=== PATIENT | female | born 1965 | race Caucasian/White ===

== ENCOUNTER 2017-12-31 11:53 | Day surgery (SDC) | payer OTHER, BC ==
[2017-12-31] MEDS ORDERED: NS 1,000 ML IV (12:38)
[2017-12-31] MEDS ORDERED: LR 1,000 ML IV (13:00)
[2017-12-31 13:17] LABS: BASO # 0.1 10^3/uL (0.0-0.2); BASO % 0.9 % (0.0-1.0); EOS # 0.1 10^3/uL (0.0-0.50); EOS % 1.2 % (0.0-3.0); HEMATOCRIT 37.2 % (36.0-47.0); HEMOGLOBIN 12.7 g/dl (12.0-16.0); IMMATURE GRANULOCYTE % 0.3 % (0-3.0); LYMPH # 1.5 10^3/uL (1.5-4.5); LYMPH % 18.9 % (24.0-44.0); MEAN CORPUSCULAR HEMOGLOBIN 28.9 pg (27.0-33.0); MEAN CORPUSCULAR HGB CONC 34.1 g/dl (32.0-36.5); MEAN CORPUSCULAR VOLUME 84.7 fl (80.0-96.0); MONO # 0.4 10^3/uL (0.0-0.8); MONO % 5.6 % (0.0-5.0); NEUTROPHILS # 5.7 10^3/uL (1.8-7.7); NEUTROPHILS % 73.1 % (36.0-66.0); PLATELET COUNT, AUTOMATED 349 10^3/uL (150-450); RED BLOOD COUNT 4.39 10^6/uL (4.00-5.40); RED CELL DISTRIBUTION WIDTH 13.2 % (11.5-14.5); WHITE BLOOD COUNT 7.7 10^3/uL (4.0-10.0)
[2017-12-31 13:44] LABS: ALBUMIN 4.2 GM/DL (3.2-5.2); ALBUMIN/GLOBULIN RATIO 1.24 (1.00-1.93); ALKALINE PHOSPHATASE 87 U/L (45-117); ALT/SGPT 30 U/L (12-78); ANION GAP 10 MEQ/L (8-16); AST/SGOT 19 U/L (7-37); BILIRUBIN,DIRECT 0.1 MG/DL (0.0-0.2); BILIRUBIN,TOTAL 0.5 MG/DL (0.2-1.0); BLOOD UREA NITROGEN 11 MG/DL (7-18); CALCIUM LEVEL 9.6 MG/DL (8.5-10.1); CARBON DIOXIDE LEVEL 26 MEQ/L (21-32); CHLORIDE LEVEL 105 MEQ/L (98-107); CREATININE FOR GFR 0.75 MG/DL (0.55-1.30); GLOMERULAR FILTRATION RATE > 60.0 (>51); GLUCOSE, FASTING 80 MG/DL (70-100); LIPASE 236 U/L (73-393); SODIUM LEVEL 141 MEQ/L (136-145); TOTAL PROTEIN 7.6 GM/DL (6.4-8.2)
[2017-12-31] MEDS ORDERED: fentaNYL 100 MCG/2 ML INJECTION (J3010) As Ordered ×2 (14:06→15:19)
[2017-12-31] MEDS ORDERED: MIDAZOLAM INJ 2 MG/2 ML VIAL (J2250) As Ordered (14:06)
[2017-12-31] MEDS ORDERED: LIDOCAINE 2% INJ 100 MG/5 ML SDV (FOR ANES.) As Ordered (14:09)
[2017-12-31] MEDS ORDERED: PROPOFOL 200 MG/20 ML VIAL As Ordered (14:09)
[2017-12-31] MEDS ORDERED: dexameTHASONE 4 MG/ML 1ML VIAL (J1100) As Ordered (14:10)
[2017-12-31] MEDS ORDERED: ROCURONIUM BROMIDE 50 MG/5 ML VIAL As Ordered (14:10)
[2017-12-31] MEDS ORDERED: ONDANSETRON 4MG/2ML VIAL (J2405) As Ordered (14:10)
[2017-12-31] MEDS ORDERED: GLYCOPYRROLATE INJ 0.2 MG/ML 2 ML VIAL As Ordered (15:16)
[2017-12-31] MEDS ORDERED: NEOSTIGMINE 10 MG/10 ML VIAL (J2710) As Ordered (15:16)
[2017-12-31] MEDS: LIDOCAINE W/EPINEPHRINE 1% 20ML VIAL As Ordered (15:18)
[2017-12-31] MEDS: LR 1,000 ML IV (15:32)
[2017-12-31] MEDS ORDERED: MEPERIDINE INJ 25 MG/ML VIAL (J2175) As Ordered (15:34)
[2017-12-31] MEDS: MEPERIDINE INJ 25 MG/ML VIAL (J2175) IV ×2 (15:40→15:49)
[2017-12-31] MEDS: fentaNYL 100 MCG/2 ML INJECTION (J3010) IV ×4 (15:55→16:13)
[2017-12-31] MEDS: NORCO, ANEXSIA 5/325MG TABLET (HYDROcodone/ACETAMINOPHEN) PO ×2 (16:11→16:45)
[2017-12-31] MEDS: ONDANSETRON 4MG/2ML VIAL (J2405) IV (16:20)
[2017-12-31] MEDS: HYDROmorphone HCL 1 MG/ML SYRINGE (J1170) IV ×5 (16:20→16:46)
== END 2017-12-31 18:42 | disposition home or self-care (01) ==
LOC: M SDC 18:42 → M ED 11:53 → M SDC 14:05
DX: K80.18 Calculus of gallbladder with other cholecystitis without obstruction (principal); C54.1 Malignant neoplasm of endometrium; Z88.8 Allergy status to other drugs, medicaments and biological substances
CPT/HCPCS: 47562

== ENCOUNTER → 2018-01-13 | Outpatient (CLI) | payer OTHER ==
[~2018-01-13] MED LIST: GASTROGRAFIN SOLUTION 30ML (Q9963) As Ordered; ISOVUE-370 76% 100ML VIAL (Q9967) As Ordered
== END ==
LOC: M RAD 10:57
DX: R10.11 Right upper quadrant pain (principal)

== ENCOUNTER → 2018-01-24 | Outpatient (REF) | payer OTHER ==
[2018-01-24 13:02] LABS: INR 0.91; PARTIAL THROMBOPLASTIN TIME 25.9 SECONDS (26.8-37.9); PROTHROMBIN TIME 12.3 SECONDS (12.4-14.5)
[2018-01-25 09:42] LABS: CA 125 3.8 U/ML (<30.2)
== END ==
LOC: M LAB REF 12:05
DX: C54.1 Malignant neoplasm of endometrium (principal)

== ENCOUNTER 2018-01-27 13:58 | Outpatient (RCR) | payer OTHER | END 2018-02-07 | LOC: M ONCR 13:58 | DX: C54.1 Malignant neoplasm of endometrium (principal) | CPT/HCPCS: 77334 ==

== ENCOUNTER 2018-02-06 08:54 | Emergency (ER) | payer OTHER ==
[2018-02-06] MEDS: PANTOPRAZOLE 40MG INJ (PROTONIX) (C9113) IV (09:31)
[2018-02-06 09:47] LABS: HEMATOCRIT 32.6 % (36.0-47.0); MEAN CORPUSCULAR HEMOGLOBIN 29.2 pg (27.0-33.0); MEAN CORPUSCULAR HGB CONC 33.7 g/dl (32.0-36.5); MEAN CORPUSCULAR VOLUME 86.5 fl (80.0-96.0); PLATELET COUNT, AUTOMATED 233 10^3/uL (150-450); RED BLOOD COUNT 3.77 10^6/uL (4.00-5.40); RED CELL DISTRIBUTION WIDTH 13.7 % (11.5-14.5); WHITE BLOOD COUNT 18.2 10^3/uL (4.0-10.0)
[2018-02-06 10:02] LABS: ADD MANUAL DIFFER YES; DIFF SLIDE NUMBER 104; POS COUNT POS FLAG; POSITIVE MORPH POS FLAG
[2018-02-06 10:15] LABS: ALBUMIN 3.6 GM/DL (3.2-5.2); ALKALINE PHOSPHATASE 132 U/L (45-117); ALT/SGPT 27 U/L (12-78); ANION GAP 6 MEQ/L (8-16); AST/SGOT 13 U/L (7-37); BILIRUBIN,DIRECT < 0.1 MG/DL (0.0-0.2); BILIRUBIN,TOTAL 0.2 MG/DL (0.2-1.0); BLOOD UREA NITROGEN 8 MG/DL (7-18); CALCIUM LEVEL 8.8 MG/DL (8.5-10.1); CARBON DIOXIDE LEVEL 29 MEQ/L (21-32); CHLORIDE LEVEL 107 MEQ/L (98-107); CK-MB VALUE MASS < 1.0 NG/ML (<3.6); CPK CREATINE PHOSPHOKINASE 33 U/L (26-192); CREATININE FOR GFR 0.81 MG/DL (0.55-1.30); GLOMERULAR FILTRATION RATE > 60.0 (>51); GLUCOSE, FASTING 103 MG/DL (70-100); LIPASE 324 U/L (73-393); MB/CK RELATIVE INDEX 3.03 (< OR =4); POTASSIUM SERUM 3.3 MEQ/L (3.5-5.1); SODIUM LEVEL 142 MEQ/L (136-145); TOTAL PROTEIN 6.6 GM/DL (6.4-8.2); TROPONIN I < 0.02 NG/ML (< 0.10)
[2018-02-06 10:17] LABS: LACTIC ACID SEPSIS PROTOCOL 2.2 MMOL/L (0.4-2.0)
[2018-02-06 10:38] LABS: BANDS 5 % (< 11); EOSINOPHILS 1 % (0-5); LYMPHOCYTES 8 % (16-52); METAMYELOCYTES 3 % (0-0); MONOCYTES 3 % (0-8); MYELOCYTES 2 % (0-0); NEUTROPHILS 78 % (35-75)
[2018-02-06 10:39] LABS: PLATELET ESTIMATE NORMAL (NORMAL); POLYCHROMASIA 1+
[2018-02-06] MEDS: ONDANSETRON 4MG/2ML VIAL (J2405) IV (11:32)
[2018-02-06] MEDS: MORPHINE 4 MG/ML 1ML VIAL/SYRINGE (J2270) IV (11:33)
[2018-02-06] MEDS: GASTROGRAFIN SOLUTION 30ML PO ×2 (11:55→12:30)
[2018-02-06 12:59] LABS: CK-MB VALUE MASS < 1.0 NG/ML (<3.6); CPK CREATINE PHOSPHOKINASE 30 U/L (26-192); MB/CK RELATIVE INDEX 3.33 (< OR =4); TROPONIN I < 0.02 NG/ML (< 0.10)
[2018-02-06] MEDS ORDERED: ISOVUE-370 76% 100ML VIAL (Q9967) As Ordered (13:15)
[2018-02-06 15:20] LABS: HEMATOCRIT 32.3 % (36.0-47.0); HEMOGLOBIN 10.9 g/dl (12.0-15.5); MEAN CORPUSCULAR HEMOGLOBIN 29.4 pg (27.0-33.0); MEAN CORPUSCULAR HGB CONC 33.7 g/dl (32.0-36.5); MEAN CORPUSCULAR VOLUME 87.1 fl (80.0-96.0); PLATELET COUNT, AUTOMATED 238 10^3/uL (150-450); RED BLOOD COUNT 3.71 10^6/uL (4.00-5.40); RED CELL DISTRIBUTION WIDTH 13.8 % (11.5-14.5); WHITE BLOOD COUNT 19.6 10^3/uL (4.0-10.0)
[2018-02-06 15:27] LABS: ADD MANUAL DIFFER YES; DIFF SLIDE NUMBER 127; POS COUNT POS FLAG; POSITIVE MORPH POS FLAG
[2018-02-06 15:46] LABS: BANDS 8 % (< 11); LYMPHOCYTES 6 % (16-52); METAMYELOCYTES 3 % (0-0); MONOCYTES 3 % (0-8); MYELOCYTES 2 % (0-0); NEUTROPHILS 77 % (35-75); PROMYELOCYTES 1 % (0-0)
[2018-02-06 15:48] LABS: PLATELET ESTIMATE NORMAL (NORMAL)
[2018-02-06] MEDS: PANTOPRAZOLE 40MG TAB (PROTONIX) PO (16:19)
[2018-02-06] MEDS: SUCRALFATE SUSP 1GM/10ML UD PO (16:20)
== END 2018-02-06 16:25 | disposition home or self-care (01) ==
LOC: M ED 08:54
DX: K29.70 Gastritis, unspecified, without bleeding (principal); D72.829 Elevated white blood cell count, unspecified; T38.0X5A Adverse effect of glucocorticoids and synthetic analogues, initial encounter; C54.1 Malignant neoplasm of endometrium; Z88.5 Allergy status to narcotic agent; Z88.8 Allergy status to other drugs, medicaments and biological substances; Z79.899 Other long term (current) drug therapy; Z79.52 Long term (current) use of systemic steroids
CPT/HCPCS: C9113

== ENCOUNTER 2018-03-08 10:59 | Emergency (ER) | payer OTHER ==
[2018-03-08] MEDS: ONDANSETRON 4MG/2ML VIAL (J2405) IV (12:40)
[2018-03-08] MEDS: NS 1,000 ML IV (12:40)
[2018-03-08] MEDS: MORPHINE 4 MG/ML 1ML VIAL/SYRINGE (J2270) IV (12:40)
[2018-03-08 12:42] LABS: BASO # 0.1 10^3/uL (0.0-0.2); BASO % 0.7 % (0.0-1.0); HEMATOCRIT 33.4 % (36.0-47.0); HEMOGLOBIN 11.4 g/dl (12.0-15.5); IMMATURE GRANULOCYTE % 0.4 % (0-3.0); LYMPH # 1.5 10^3/uL (1.5-4.5); LYMPH % 21.7 % (24.0-44.0); MEAN CORPUSCULAR HEMOGLOBIN 30.4 pg (27.0-33.0); MEAN CORPUSCULAR HGB CONC 34.1 g/dl (32.0-36.5); MEAN CORPUSCULAR VOLUME 89.1 fl (80.0-96.0); MONO # 0.6 10^3/uL (0.0-0.8); NEUTROPHILS # 4.8 10^3/uL (1.8-7.7); NEUTROPHILS % 69.2 % (36.0-66.0); PLATELET COUNT, AUTOMATED 254 10^3/uL (150-450); RED BLOOD COUNT 3.75 10^6/uL (4.00-5.40); RED CELL DISTRIBUTION WIDTH 14.7 % (11.5-14.5); WHITE BLOOD COUNT 6.9 10^3/uL (4.0-10.0)
[2018-03-08 12:45] LABS: KETONE, URINE AUTO RFX NEGATIVE (NEGATIVE); MUCUS, URINE RFX SMALL (NEGATIVE); NITRITE, URINE AUTO RFX NEGATIVE (NEGATIVE); RBC, URINE AUTO RFX 2 /HPF (0-3); SPECIFIC GRAVITY UR AUTO RFX 1.009 (1.002-1.035); SQUAM EPITHELIAL CELL UR AURFX 0 /HPF (0-6); WBC, URINE AUTO RFX 5 /HPF (0-3)
[2018-03-08 12:57] LABS: LEUKOCYTE ESTERASE UR AUTO RFX TRACE (NEGATIVE)
[2018-03-08 13:04] LABS: LACTIC ACID SEPSIS PROTOCOL 0.7 MMOL/L (0.4-2.0)
[2018-03-08 13:05] LABS: ALBUMIN/GLOBULIN RATIO 1.21 (1.00-1.93); ALKALINE PHOSPHATASE 99 U/L (45-117); ALT/SGPT 52 U/L (12-78); ANION GAP 6 MEQ/L (8-16); AST/SGOT 26 U/L (7-37); BILIRUBIN,DIRECT < 0.1 MG/DL (0.0-0.2); BILIRUBIN,TOTAL 0.5 MG/DL (0.2-1.0); BLOOD UREA NITROGEN 8 MG/DL (7-18); CALCIUM LEVEL 9.3 MG/DL (8.5-10.1); CARBON DIOXIDE LEVEL 28 MEQ/L (21-32); CHLORIDE LEVEL 106 MEQ/L (98-107); CREATININE FOR GFR 0.76 MG/DL (0.55-1.30); GLOMERULAR FILTRATION RATE > 60.0 (>51); GLUCOSE, FASTING 83 MG/DL (70-100); LIPASE 218 U/L (73-393); POTASSIUM SERUM 3.7 MEQ/L (3.5-5.1); SODIUM LEVEL 140 MEQ/L (136-145); TOTAL PROTEIN 7.3 GM/DL (6.4-8.2)
[2018-03-08] MEDS ORDERED: ISOVUE-370 76% 100ML VIAL (Q9967) As Ordered (13:24)
== END 2018-03-08 15:31 | disposition home or self-care (01) ==
LOC: M ED 10:59
DX: R10.84 Generalized abdominal pain (principal); C55 Malignant neoplasm of uterus, part unspecified; R06.02 Shortness of breath; R51 Headache; Z88.5 Allergy status to narcotic agent; Z88.6 Allergy status to analgesic agent; Z79.899 Other long term (current) drug therapy; Z79.52 Long term (current) use of systemic steroids
CPT/HCPCS: J2270

== ENCOUNTER 2018-03-15 09:57 | Outpatient (RCR) | payer OTHER | END 2018-04-09 | LOC: M ONCR 09:57 | DX: C54.1 Malignant neoplasm of endometrium (principal) | CPT/HCPCS: 77300 ==

== ENCOUNTER 2018-03-17 17:21 | Emergency (ER) | payer OTHER ==
[2018-03-17 19:18] LABS: BASO % 0.7 % (0.0-1.0); EOS # 0.1 10^3/uL (0.0-0.50); EOS % 3.4 % (0.0-3.0); HEMATOCRIT 30.1 % (36.0-47.0); HEMOGLOBIN 10.3 g/dl (12.0-15.5); IMMATURE GRANULOCYTE % 0.5 % (0-3.0); LYMPH # 1.8 10^3/uL (1.5-4.5); LYMPH % 43.3 % (24.0-44.0); MEAN CORPUSCULAR HEMOGLOBIN 30.7 pg (27.0-33.0); MEAN CORPUSCULAR HGB CONC 34.2 g/dl (32.0-36.5); MEAN CORPUSCULAR VOLUME 89.6 fl (80.0-96.0); MONO # 0.2 10^3/uL (0.0-0.8); MONO % 5.1 % (0.0-5.0); NEUTROPHILS # 1.9 10^3/uL (1.8-7.7); PLATELET COUNT, AUTOMATED 268 10^3/uL (150-450); RED BLOOD COUNT 3.36 10^6/uL (4.00-5.40); RED CELL DISTRIBUTION WIDTH 14.1 % (11.5-14.5); WHITE BLOOD COUNT 4.1 10^3/uL (4.0-10.0)
[2018-03-17 19:46] LABS: CPK CREATINE PHOSPHOKINASE 38 U/L (26-192); TROPONIN I < 0.02 NG/ML (< 0.10)
[2018-03-17 19:47] LABS: ALBUMIN 4.1 GM/DL (3.2-5.2); ALBUMIN/GLOBULIN RATIO 1.71 (1.00-1.93); ALKALINE PHOSPHATASE 70 U/L (45-117); ALT/SGPT 33 U/L (12-78); AMYLASE 66 U/L (25-115); ANION GAP 6 MEQ/L (8-16); AST/SGOT 11 U/L (7-37); BILIRUBIN,DIRECT 0.1 MG/DL (0.0-0.2); BILIRUBIN,TOTAL 0.4 MG/DL (0.2-1.0); BLOOD UREA NITROGEN 11 MG/DL (7-18); CALCIUM LEVEL 8.9 MG/DL (8.5-10.1); CARBON DIOXIDE LEVEL 29 MEQ/L (21-32); CHLORIDE LEVEL 103 MEQ/L (98-107); CK-MB VALUE MASS < 1.0 NG/ML (<3.6); CREATININE FOR GFR 0.78 MG/DL (0.55-1.30); GLOMERULAR FILTRATION RATE > 60.0 (>51); GLUCOSE, FASTING 88 MG/DL (70-100); LIPASE 200 U/L (73-393); MB/CK RELATIVE INDEX 2.63 (< OR =4); POTASSIUM SERUM 4.1 MEQ/L (3.5-5.1); SODIUM LEVEL 138 MEQ/L (136-145); TOTAL PROTEIN 6.5 GM/DL (6.4-8.2)
[2018-03-17 19:50] LABS: LACTIC ACID SEPSIS PROTOCOL 0.8 MMOL/L (0.4-2.0)
[2018-03-17] MEDS: NS 1,000 ML IV (20:06)
[2018-03-17] MEDS: ONDANSETRON 4MG/2ML VIAL (J2405) IV (20:07)
[2018-03-17] MEDS: MORPHINE 4 MG/ML 1ML VIAL/SYRINGE (J2270) IV ×2 (20:07→21:30)
[2018-03-17 20:42] LABS: KETONE, URINE AUTO RFX NEGATIVE (NEGATIVE); NITRITE, URINE AUTO RFX NEGATIVE (NEGATIVE); RBC, URINE AUTO RFX 1 /HPF (0-3); SPECIFIC GRAVITY UR AUTO RFX 1.011 (1.002-1.035); SQUAM EPITHELIAL CELL UR AURFX 0 /HPF (0-6)
[2018-03-17 21:06] LABS: LEUKOCYTE ESTERASE UR AUTO RFX 1+ (NEGATIVE); WBC, URINE AUTO RFX 12 /HPF (0-3)
[2018-03-17] MEDS: GI COCKTAIL 50ML BTL(HYOSCYAMINE/MAALOX/LIDOCAINE VISCOUS)(1:3:1) PO (21:53)
== END 2018-03-17 22:33 | disposition home or self-care (01) ==
LOC: M ED 22:33
DX: R10.84 Generalized abdominal pain (principal); C54.1 Malignant neoplasm of endometrium; Z79.899 Other long term (current) drug therapy; Z88.5 Allergy status to narcotic agent; Z88.6 Allergy status to analgesic agent
CPT/HCPCS: J2270

== ENCOUNTER → 2018-03-17 | Outpatient (CLI) | payer OTHER ==
[~2018-03-17] MED LIST changes: -GASTROGRAFIN SOLUTION 30ML (Q9963) As Ordered; -ISOVUE-370 76% 100ML VIAL (Q9967) As Ordered; +PROHANCE 279.3MG/ML 15ML VIAL (A9576) As Ordered
== END ==
LOC: M RAD 15:30
DX: Z85.42 Personal history of malignant neoplasm of other parts of uterus (principal); M54.5 Low back pain

== ENCOUNTER 2018-03-31 11:45 | Day surgery (SDC) | payer OTHER ==
[2018-03-31] MEDS: NS 1,000 ML IV (12:47)
[2018-03-31] MEDS ORDERED: LIDOCAINE 2% INJ 100 MG/5 ML SDV (FOR ANES.) As Ordered (13:31)
[2018-03-31] MEDS ORDERED: PROPOFOL 200 MG/20 ML VIAL As Ordered (13:31)
[2018-03-31] MEDS ORDERED: fentaNYL 100 MCG/2 ML INJECTION (J3010) As Ordered (13:32)
== END 2018-03-31 14:26 | disposition home or self-care (01) ==
LOC: M OPP 11:45
DX: R10.13 Epigastric pain (principal); R10.11 Right upper quadrant pain; D50.9 Iron deficiency anemia, unspecified; K29.70 Gastritis, unspecified, without bleeding; K21.9 Gastro-esophageal reflux disease without esophagitis; R51 Headache; R06.02 Shortness of breath; Z92.21 Personal history of antineoplastic chemotherapy; C54.1 Malignant neoplasm of endometrium; Z88.5 Allergy status to narcotic agent; Z88.8 Allergy status to other drugs, medicaments and biological substances; Z79.899 Other long term (current) drug therapy; Z80.3 Family history of malignant neoplasm of breast; Z80.0 Family history of malignant neoplasm of digestive organs; Z80.8 Family history of malignant neoplasm of other organs or systems
CPT/HCPCS: 43239

== ENCOUNTER → 2018-04-05 | Outpatient (REF) | payer OTHER ==
[2018-04-05 14:52] LABS: CA 125 2.9 U/ML (<30.2)
== END ==
LOC: M LAB REF 13:16
DX: C54.1 Malignant neoplasm of endometrium (principal)

== ENCOUNTER 2018-04-11 10:48 | Outpatient (RCR) | payer OTHER | END 2018-05-10 | LOC: M ONCR 10:48 | DX: C54.1 Malignant neoplasm of endometrium (principal) | CPT/HCPCS: 77336 ==

== ENCOUNTER → 2018-04-25 | Outpatient (REF) | payer OTHER ==
[2018-04-26 15:02] LABS: CA 125 3.5 U/ML (<30.2)
== END ==
LOC: M LAB REF 13:56
DX: C54.1 Malignant neoplasm of endometrium (principal)

== ENCOUNTER → 2018-10-05 | Outpatient (CLI) | payer OTHER ==
[~2018-10-05] MED LIST changes: +ALEV220T26 PO; +CYMB1CAP5 PO; +DULC5TAB PO; +DULO1CAP3 PO; +GASTROGRAFIN SOLUTION 30ML (Q9963) As Ordered ONE; +HYDR-3713 PO; +ISOVUE-370 76% 100ML VIAL (Q9967) As Ordered ONE; +MOBI4TAB PO; +ONDA8TAB7 PO; +PENI500T PO; +PRED10TA2; +PRED20TA PO; +PROC10TA4 PO; -PROHANCE 279.3MG/ML 15ML VIAL (A9576) As Ordered; +PROT1TAB2 PO; +SILV40CR EXT; +SUCR1SS PO; +TUMS500C PO; +TYLE325T5 PO
--- NOTE | 2018-10-05 10:57 | REP ---
Clinical: Endometrial carcinoma for restaging. Comparison: 03/08/2018. Findings: Fatty infiltration to the liver noted with small scattered subcentimeter hypodensities which remain stable and likely represent cysts. Spleen, pancreas, bilateral adrenal glands and kidneys are normal. Evidence for prior cholecystectomy. The enteric system is without obstruction or acute inflammatory process. Pelvis demonstrates normal bladder and evidence for prior hysterectomy. No ascites. No adenopathy. No focal mass lesion. Abdominal aorta and vasculature appears normal. Musculoskeletal structures are intact without focal osseous abnormality. Impression: 1. No acute abdominopelvic pathology appreciated. 2. No ascites, inflammatory stranding, adenopathy, or focal mass/recurrence appreciated. Electronically Signed by Kwadwo Méndez MD 10/05/2018 10:48 A
--- NOTE | 2018-10-05 11:01 | REP ---
Clinical: History of endometrial carcinoma. Technique: Axial contrast enhanced images from the thoracic inlet to the upper abdomen with coronal and sagittal re-formations using 100 ml Isovue 370 intravenous contrast material. Comparison: 02/06/2018 Findings: Lung mckeon demonstrate mild chronic interstitial changes. There is a 9 mm ovoid solid lesion at the right lung base almost completely obscured by the diaphragm (image 69) which on retrospect remains stable compared to 02/06/2018. No further consolidation, nodule, or mass lesion appreciated. No pleural effusion. No pneumothorax. Tracheobronchial tree is patent. No significant axillary, hilar, or mediastinal adenopathy. Mediastinum demonstrates normal thoracic aorta, pulmonary vasculature and heart/pericardium. No pericardial effusion. Musculoskeletal structures are intact. Impression: Solitary 9 mm nodule at the right lung base which appears stable compared to 02/06/2018. No further nodule, mass, effusion, or adenopathy. Electronically Signed by Kwadwo Méndez MD 10/05/2018 10:52 A
== END ==
LOC: M RAD 08:42
PROVIDERS: ATTEND Internal Medicine Medical Oncology
DX: C54.1 Malignant neoplasm of endometrium (principal); R91.1 Solitary pulmonary nodule
CPT/HCPCS: 71260; 74177; Q9963; Q9967

== ENCOUNTER → 2018-12-23 | Outpatient (CLI) | payer OTHER ==
[~2018-12-23] MED LIST changes: -ISOVUE-370 76% 100ML VIAL (Q9967) As Ordered ONE; +ISOVUE-370 76% 125ML VIAL (Q9967 PER ML) As Ordered ONE
--- NOTE | 2018-12-24 07:16 | REP ---
CT CHEST WITH IV CONTRAST: TECHNIQUE: Axial contrast enhanced images from the thoracic inlet to the upper abdomen using 100 mL Isovue 370 intravenous contrast material with multiplanar reformations. Lungs show no evidence of a suspicious nodule. There is no infiltrate. The previously described nodule in the right lung base actually represents focal pleural fat. There is no mediastinal, hilar or chest wall lymphadenopathy. There is no pleural or pericardial effusion. There is no cardiomegaly. Thoracic aorta is normal in caliber with no aneurysm or dissection. IMPRESSION: No nodule or adenopathy. Electronically Signed by Brice Hunter MD 12/28/2018 09:23 A
--- NOTE | 2018-12-24 07:17 | REP ---
CT ABDOMEN AND PELVIS WITH ORAL AND IV CONTRAST: TECHNIQUE: Axial contrast enhanced images from the lung bases to the pubic symphysis using 100 mL Isovue 370 intravenous contrast material with multiplanar reformations. The liver demonstrates a few small cysts, unchanged predominantly superiorly located. The patient has had a prior cholecystectomy. Mildly prominent common bile duct is unchanged. Spleen, adrenals, pancreas and kidneys demonstrate no mass. There is no abdominal aortic aneurysm. There is no adenopathy. There is no free air or free fluid. There is no bowel wall thickening. There is no evidence of a pelvic mass. The patient has had a hysterectomy. Urinary bladder is mildly distended and appears unremarkable. IMPRESSION: No adenopathy or mass. A few scattered small cysts in the liver. No change since prior study of 10/05/2018. Electronically Signed by Brice Hunter MD 12/28/2018 09:23 A
== END ==
LOC: M RAD 14:40
PROVIDERS: ATTEND Obstetrics & Gynecology
DX: C54.1 Malignant neoplasm of endometrium (principal); K76.89 Other specified diseases of liver
CPT/HCPCS: 71260; 74177; Q9963; Q9967

== ENCOUNTER → 2019-12-27 | Outpatient (CLI) | payer OTHER ==
[~2019-12-27] MED LIST changes: +ACET-683 PO; +ATIV2TAB PO; -DULO1CAP3 PO; +DULO1CAP6 PO; +DULO30CA9 PO; +ISOVUE-370 76% 100ML VIAL (Q9967) As Ordered ONE; -ISOVUE-370 76% 125ML VIAL (Q9967 PER ML) As Ordered ONE; +OMEP-221 PO; +ONDA8TAB10 PO; -ONDA8TAB7 PO; +[UNRECOGNIZED DRUG - CODE] PO
--- NOTE | 2019-12-27 19:26 | REP ---
Clinical: Abdominal pain with history of endometrial carcinoma. Technique: Axial contrast enhanced images from the thoracic inlet to the upper abdomen with coronal and sagittal re-formations using 100 ml Isovue 370 intravenous contrast material. Comparison: 12/23/2018, 02/06/2018. Findings: Chronic interstitial and emphysematous changes are suggested. No focal consolidation, significant nodule or mass lesion identified. No effusion. No pneumothorax. Tracheobronchial tree is patent. No obvious adenopathy. The mediastinum demonstrates normal thoracic aorta, pulmonary vasculature and heart/pericardium. Musculoskeletal structures intact without acute abnormality. Impression: Chronic-appearing changes. No acute mediastinal or pleuroparenchymal process. No evidence for metastatic disease. Electronically Signed by Kwadwo Méndez MD 12/27/2019 07:18 P
--- NOTE | 2019-12-27 19:30 | REP ---
Clinical: Abdominal pain with history of endometrial carcinoma. Technique: Axial contrast enhanced images from the lung bases to the pubic symphysis with coronal and sagittal re-formations using oral (per protocol) and 100 ml Isovue 370 intravenous contrast material. Delayed images of the abdomen obtained. Comparison: 12/23/2018, 10/05/2018. Findings: Small scattered hepatic hypodensities remain stable compared to 10/05/2018 and consistent with benign cysts. Evidence of prior cholecystectomy. Spleen, pancreas, bilateral adrenal glands and kidneys are normal. The enteric system is without obstruction or acute inflammatory process. Normal appendix identified in the right lower quadrant. Pelvis demonstrates normal bladder and evidence of prior hysterectomy. No ascites. No adenopathy. No abdominal pelvic mass lesion. Musculoskeletal structures are intact without focal abnormality. Abdominal aorta without aneurysm or dissection. Impression: 1. No acute abdominopelvic pathology appreciated. 2. No evidence for metastatic disease or recurrence. No adenopathy, focal inflammatory stranding, or ascites. 3. Stable scattered subcentimeter hepatic cysts. Electronically Signed by Kwadwo Méndez MD 12/27/2019 07:22 P
== END ==
LOC: M RAD 10:45
PROVIDERS: ATTEND Internal Medicine Medical Oncology
DX: C54.1 Malignant neoplasm of endometrium (principal)
CPT/HCPCS: 71260; 74177; Q9963; Q9967

== ENCOUNTER 2020-06-21 10:49 | Emergency (ER) | payer MEDICARE, OTHER ==
[~2020-06-21] VITALS: Ht 165.1 cm; Wt 68.0 kg
[~2020-06-21 10:49] MED LIST changes: -GASTROGRAFIN SOLUTION 30ML (Q9963) As Ordered ONE; -ISOVUE-370 76% 100ML VIAL (Q9967) As Ordered ONE
[2020-06-21] MEDS ORDERED: GI COCKTAIL 50ML BTL(HYOSCYAMINE/MAALOX/LIDOCAINE VISCOUS)(1:3:1) PO ONE (11:15)
[2020-06-21 11:22] LABS: BASO # 0.1 10^3/uL (0.0-0.2); BASO % 1.2 % (0.0-1.0); EOS # 0.1 10^3/uL (0.0-0.5); EOS % 1.2 % (0.0-3.0); HEMATOCRIT 42.2 % (36.0-47.0); HEMOGLOBIN 14.2 g/dl (12.0-15.5); LYMPH % 20.9 % (24.0-44.0); MEAN CORPUSCULAR HGB CONC 33.6 g/dl (32.0-36.5); MONO # 0.4 10^3/uL (0.0-0.8); MONO % 7.8 % (0.0-5.0); NEUTROPHILS # 3.4 10^3/uL (1.5-8.5); NEUTROPHILS % 68.7 % (36.0-66.0); PLATELET COUNT, AUTOMATED 319 10^3/uL (150-450); RED BLOOD COUNT 4.74 10^6/uL (4.00-5.40); WHITE BLOOD COUNT 4.9 10^3/uL (4.0-10.0)
[2020-06-21] MEDS ORDERED: MELO15TA28 PO (11:27)
--- NOTE | 2020-06-21 11:40 | REPVR ---
PROCEDURE INFORMATION: Exam: XR Chest, 1 View Exam date and time: 06/21/2020 11:29 AM Age: 54 years old Clinical indication: Chest pain; Type not specified TECHNIQUE: Imaging protocol: XR of the chest Views: 1 view. COMPARISON: CT Chest with contrast 12/27/2019 12:33 PM FINDINGS: Lungs: Unremarkable. No consolidation. Pleural space: Unremarkable. No pleural effusion. No pneumothorax. Heart/Mediastinum: Unremarkable. No cardiomegaly. Vasculature: Calcification of the thoracic aorta. Bones/joints: Unremarkable. Intraperitoneal space: Right upper quadrant surgical clips. IMPRESSION: No acute cardiopulmonary abnormality. Electronically signed by: Nicole Hernández On 06/21/2020 11:40:25 AM
[2020-06-21 11:47] LABS: ALBUMIN 4.1 GM/DL (3.2-5.2); ALT/SGPT 29 U/L (12-78); BILIRUBIN,DIRECT 0.2 MG/DL (0.0-0.2); BILIRUBIN,TOTAL 0.6 MG/DL (0.2-1.0); BLOOD UREA NITROGEN 12 MG/DL (7-18); CALCIUM LEVEL 9.7 MG/DL (8.5-10.1); CARBON DIOXIDE LEVEL 29 MEQ/L (21-32); CHLORIDE LEVEL 105 MEQ/L (98-107); CK-MB VALUE MASS < 1.0 NG/ML (<3.6); CPK CREATINE PHOSPHOKINASE 112 U/L (26-192); GLOMERULAR FILTRATION RATE 54.7 (>51); GLUCOSE, FASTING 103 MG/DL (70-100); LIPASE 181 U/L (73-393); MB/CK RELATIVE INDEX 0.89 (< OR =4); NT-PRO BNP 30 PG/ML (<125); POTASSIUM SERUM 4.2 MEQ/L (3.5-5.1); SODIUM LEVEL 139 MEQ/L (136-145); TOTAL PROTEIN 7.5 GM/DL (6.4-8.2); TROPONIN I < 0.02 NG/ML (< 0.10)
[2020-06-21 13:15] VITALS: BP 108/73
[2020-06-26] MEDS ORDERED: PROC10TA4 PO (14:43)
[2020-06-26] MEDS ORDERED: OMEP-221 PO (15:16)
[2020-06-26] MEDS ORDERED: META0.52 PO (15:17)
--- NOTE | 2020-06-26 21:44 | ECGEPIP ---
[facility] - ED Test Date: 2020-06-21 Pat Name: LULA GRIGSBY Department: Room: - Gender: Female [employer]: : 1965 Requested By: Hailey Hassan Order Number: [id number] Reading MD: Yannick Romero Measurements Intervals [place] Rate: 91 P: 67 MN: 141 QRS: 39 QRSD: 94 T: 32 QT: 365 QTc: 450 Interpretive Statements SINUS RHYTHM NONSPECIFIC T-WAVE ABNORMALITY BASELINE ARTIFACT NO PREVIOUS SEE SCANNED DOWNTIME REPORT
[2020-06-28] MEDS ORDERED: OMEP-221 PO (11:38)
[2020-07-29] MEDS ORDERED: OMEP-221 PO (14:37)
[2020-08-19] MEDS ORDERED: NORT10CA2 PO (11:01)
== END 2020-06-21 13:39 | disposition home or self-care (01) ==
LOC: M ED 10:49
DX: R07.9 Chest pain, unspecified (principal); R06.89 Other abnormalities of breathing; R94.31 Abnormal electrocardiogram [ECG] [EKG]; M54.9 Dorsalgia, unspecified; G89.29 Other chronic pain; Z79.899 Other long term (current) drug therapy; Z88.5 Allergy status to narcotic agent; Z88.8 Allergy status to other drugs, medicaments and biological substances; Z85.42 Personal history of malignant neoplasm of other parts of uterus; Z92.21 Personal history of antineoplastic chemotherapy

== ENCOUNTER → 2020-06-26 | Outpatient (REF) | payer MEDICARE, OTHER ==
[~2020-06-26] MED LIST changes: +MELO15TA28 PO; +META0.52 PO; +NORT10CA2 PO
== END ==
LOC: M LAB REF 11:50
PROVIDERS: ATTEND Internal Medicine Hematology & Oncology
DX: C54.1 Malignant neoplasm of endometrium (principal); Z92.21 Personal history of antineoplastic chemotherapy; Z92.3 Personal history of irradiation; R10.9 Unspecified abdominal pain; M54.5 Low back pain; K44.9 Diaphragmatic hernia without obstruction or gangrene

== ENCOUNTER → 2020-08-08 | Outpatient (CLI) | payer MEDICARE, OTHER ==
[~2020-08-08] MED LIST changes: +GASTROGRAFIN SOLUTION 30ML (Q9963) As Ordered ONE; +ISOVUE-370 76% 100ML VIAL As Ordered ONE
--- NOTE | 2020-08-08 14:48 | REP ---
INDICATION: ENDOMETRIAL CANCER PT AT FILE ROOM. COMPARISON: None. TECHNIQUE: CT chest performed following the intravenous administration of 100 cc of Isovue 370. Sagittal and coronal reconstruction images are performed. FINDINGS: Lungs: Clear, no infiltrate or nodule. Mediastinum: No adenopathy. Keila: No adenopathy. Axilla: No adenopathy. Pleura: No effusion. Heart: Not enlarged. Thoracic aorta: No aneurysm or dissection. Visualized osseous structures: Unremarkable. IMPRESSION: Unremarkable CT chest. <Electronically signed by Brice Hunter > 08/08/20 [id number]
--- NOTE | 2020-08-08 14:55 | REP ---
INDICATION: ENDOMETRIAL CANCER COMPARISON: 12/27/2019. TECHNIQUE: CT Scan of the abdomen and pelvis was performed with intravenous administration of 100 cc of Isovue 370, and oral contrast. FINDINGS: Lung bases: There are few small stable cysts superiorly. No new liver mass. There is a small hiatal hernia. Liver: Normal Gallbladder: Prior cholecystectomy. There is stable prominence of the common bile duct. Spleen: Normal. Adrenals: Normal. Pancreas: Normal. Kidneys: Normal. Small and large bowel: Unremarkable. Free fluid: None. Abdominal aorta: No aneurysm or dissection. Adenopathy: None. Appendix: Not inflamed. Osseous structures: Unremarkable. Pelvis: No mass. Prior hysterectomy. Urinary bladder mildly distended and unremarkable. IMPRESSION: Stable benign findings. <Electronically signed by Brice Hunter > 08/08/20 [id number]
== END ==
LOC: M RAD 12:18
PROVIDERS: ATTEND Internal Medicine Hematology & Oncology
DX: C54.1 Malignant neoplasm of endometrium (principal)
CPT/HCPCS: 71260; 74177; Q9963; Q9967

== ENCOUNTER → 2020-11-03 | Outpatient (CLI) | payer MEDICARE, OTHER ==
[~2020-11-03] MED LIST changes: +CVS1CAP2 PO; -GASTROGRAFIN SOLUTION 30ML (Q9963) As Ordered ONE; -ISOVUE-370 76% 100ML VIAL As Ordered ONE; +SUCR1TAB56 PO
== END ==
LOC: M LABSMTC 10:41
PROVIDERS: ATTEND Anesthesiology
DX: Z01.812 Encounter for preprocedural laboratory examination (principal); Z20.822 Contact with and (suspected) exposure to COVID-19

== ENCOUNTER 2020-11-08 09:44 | Day surgery (SDC) | payer MEDICARE, OTHER ==
[~2020-11-08] VITALS: Ht 165.1 cm; Wt 68.0 kg
[~2020-11-08 09:44] MED LIST changes: +NS 1,000 ML IV ONE
--- OUTSIDE RECORDS SUMMARY | 2020-11-08 09:48 | CCD | Continuity of Care Document ---
Author Author [facility] Organization [facility] Address [address] [place] [address] Phone Support Name Relationship Address Phone Tony Meza PRS [facility] [place] [address] GREG MENDEZ PRS [address] [place] [address] Allergies, Adverse Reactions, Alerts Allergen Type Severity Reaction Last Updated Verified Status oxycodone Allergy Modera te Rash June 14, 2018 9:15am No Active meloxicam Adverse Reaction Moderate gi upset June 14, 2018 8:52am No Active Medications Medication Status Dose Units Route Directions Qty Days Start Date End Date Instructions Polyethylene Glycol 3350 (Miralax) 17 gram/dose powder Active 17 GM PO daily February 21, 2019 3:26pm Duloxetine Discontinued PO daily 30 April 21, 2019 7:27am April 21, 2019 8:09am Duloxetine Discontinued 30 MG PO 2 Times Per Day April 21, 2019 8:08am September 05, 2019 9:55am Lorazepam Discontinued 1 MG PO At Bedtime May 26, 2019 7:52am July 13, 2019 8:56am njs reg# [id number] Omeprazole Discontinued 40 MG PO daily May 26, 2019 7:53am July 28, 2019 10:49am Lorazepam Discontinued 2 MG PO At Bedtime July 13, 2019 8:57am August 14, 2019 8:28am njs reg# [id number] Duloxetine Discontinued 30 MG PO daily September 05, 2019 9:54am September 14, 2019 9:59am Omeprazole Discontinued 40 MG PO daily December 05, 2019 9:18am September 13, 2020 10:45am Valacyclovir Discontinued 1000 MG PO Q8H September 21, 2019 3:02pm October 12, 2019 9:39am Lorazepam Discontinued 2 MG PO At Bedtime October 12, 2019 9:57am November 13, 2019 10:47am [facility] reg# [id number] Meloxicam Discontinued 15 MG PO daily May 13, 2020 11:40am June 13, 2020 9:11am Prochlorperazine Maleate Discontinued 10 MG PO daily June 13, 2020 8:57am September 13, 2020 10:45am Pt takes this 1 0r twice a week as needed for nausea. Prochlorperazine Maleate Active 10 MG PO daily September 13, 2020 10:45am Pt takes this 1 0r twice a week as neede d for nausea. Esomeprazole Magnesium Active 40 MG PO daily September 13, 2020 11:03am Solifenacin (Vesicare) 10 mg tablet Discontinued 10 MG PO O nce Per Day 0 November 16, 2011 1:37pm April 11, 2016 3:54pm Conjugated Estrogens (Premarin Vaginal*) 30 GM cream Discontinued 30 GM VG At Bedtime 0.5 April 16, 2016 10:43am May 20, 2016 1:24pm Metaxalone (Metaxall) 800 MG tablet Discontinued 800 MG PO Three times a day December 14, 2016 3:54pm December 29, 2016 1:13pm Conjugated Estrogens (Premarin Vaginal*) 30 GM cream Discontinued 0.5 GM VG At Bedtime 1 January 13, 2017 1:27pm December 30, 2:00pm Insert 1/2 gram into vagaina 1-3 times a week as needed as directed Naproxen Sodium (Aleve) 220 MG capsule Discontinued 220 MG PO June 02, 2017 12 :40pm May 31, 2018 8:19am Phenazopyridine Discontinued 200 MG PO Three times a day PRN October 28, 2017 1 1:08am December 30, 2017 2:00pm Sulfamethoxazole-Trimethoprim (Bactrim D s Tablet) 800-160MG tablet Discontinued 1 TAB PO 2 Times Per Day October 28, 2017 11:08am December 2:00pm Ciprofloxacin Hcl Discontinued 1 TAB PO 2 Times Per Day October 28, 2017 11:34am December 30, 2017 2:00pm Naproxen (Naprosyn) 500 MG tablet Di scontinued 500 MG PO 2 Times Per Day 30 November 01, 2017 3:19pm December 30, 2017 2:00pm Penicillin V Potassium Discontinued 500 MG PO Four Times a Day December 30, 2017 2: 01pm May 31, 2018 8:19am Pantoprazole Discontinued 1 TAB PO Once Per Day May 31, 2018 8:19am August 16, 2018 8:46am Tizanidine Discontinued 2 MG PO Four Times a Day June 14, 2018 8:13am July 12, 2018 7:40am Prednisone Discontinued 5 MG PO Once Per Day June 14, 2018 8:13am August 16, 2018 8:46am Celecoxib Discontinued 1 00 MG PO 2 Times Per Day 60 June 14, 2018 8:13am August 16, 2018 8:46am Prochlorperazine Maleate Discontinued 10 MG PO June 14, 2018 8:13am August 16, 2018 8:46am Sucralfate (Carafate) 1 GM tablet Di scontinued 1 G PO Fou r Times a Day June 14, 2018 8:50am August 16, 2018 8:46am Duloxetine Discontinued 30 MG PO Once Per Day June 14, 2018 8:52am June 14, 2018 2:59pm Duloxetine Discontinued 30 MG PO Once Per Day June 14, 2018 2:59pm July 12, 2018 7:57am Duloxetine Discontinued 30 MG PO Once Per Day July 12, 2018 7:57am August 16, 2018 8:46am Tizanidine Discontinued 2 MG PO Three times a day August 16, 2018 8:47am November 28, 2018 2:58pm Naproxen Sodium (Aleve) 220 MG capsule Discontinued 220 MG PO 2 Times Per Day August 16, 2018 8:47am November 28, 2018 2:59pm Duloxetine Discontinued 30 MG PO Once Per Day August 16, 2018 9:06am August 25, 2018 2:14pm Duloxetine Discontinued 30 MG PO Once Per Day August 25, 2018 2:14pm August 29, 2018 9:44am Duloxetine Discontinued 60 MG PO Once Per Day August 29, 2018 9:44am November 28, 2018 3:21pm Cyclobenzaprine Hcl Discontinued 1 TAB PO At Bedtime November 28, 2018 3:24pm January 03, 2019 9:11am Celecoxib Discontinued 1 00 MG PO Once Per Day 60 January 03, 2019 9:13am February 21, 2019 3:25pm Omeprazole Discontinued 40 MG PO daily July 28, 2019 10:48am December 05, 2019 9:18am Lorazepam Discontinued 2 MG PO At Bedtime August 14, 2019 8:27am September 14, 2019 9:58am nys reg# [id number] Lorazepam Discontinued 2 MG PO At Bedtime September 14, 2019 9:56am October 12, 2019 9:58am nys reg# [id number] Duloxetine Discontinued 30 MG PO daily September 14, 2019 9:58am July 26, 2020 8:35am Lorazepam Discontinued 2 MG PO At Bedtime November 13, 2019 10:46am December 19, 2019 11:54am nys reg# [id number] Lorazepam Discontinued 2 MG PO At Bedtime December 19, 2019 11:53am January 31, 2020 11:42am nys reg# [id number] Lorazepam Discontinued 2 MG PO At Bedtime January 31, 2020 11:42am March 14, 2020 8:39am nys reg# [id number] Lorazepam Discontinued 2 MG PO At Bedtime March 14, 2020 8:38am April 22, 2020 9:47am nys reg# [id number] Lorazepam Discontinued 2 MG PO At Bedtime April 22, 2020 9:46am June 14, 2020 7:39am nys reg# [id number] Lorazepam Discontinued 2 MG PO At Bedtime June 14, 2020 7:38am July 26, 2020 7:42am nys reg# [id number] Lorazepam Discontinued 2 MG PO At Bedtime July 26, 2020 7:41am August 26, 2020 10:11am nys reg# [id number] Nortriptyline Active 10 - 20 MG PO At Bedtime July 26, 2020 8:35am Lorazepam Active 2 MG PO At Bedtime August 26, 2020 10:11am nys reg# [id number] Problems Active Problems Medical Problem Onset Date Status Chronic thoracic back pain Active Chronic major depressive disorder Active Arthralgia Active Herpes zoster Active Gastritis Active Insomnia due to psychological stress Active Uterine cancer Active Procedures Procedure Date Performed Status MRI Thoracic w/& w/o contrast Octobe r 2019 1:39pm completed Relevant Diagnostic Tests and/or Laboratory Data Diagnostic Imaging Reports Report Dictated Date/Time Dictated By Status Radiology Report August 01, 2020 1:15pm Gaby Peña MD completed [facility] [address] [place] [address] [phone] NAME SEX PT STATUS ACCOUNT NUMBER LULA BROWER PRE REF [id number] ORDERING PHYSICIAN LOCATION MEDICAL RECORD NO. GREG MENDEZ MRI [id number] ATTENDING PHYSICIAN DATE OF DATE OF EXAM/TIME Victorino Meza MD 1965 07/31/209 TYPE / EXAM MRI Thoracic w/& w/o contrast REASON FOR EXAM BACK PAIN, THORACIC , PT HAS HX OF ENDOMETRIAL CANCER R/O METASAS Clinical History/Indication for Exam: BACK PAIN, THORACIC , PT HAS HX OF ENDOMETRIAL CANCER R/O METASAS MR THORACIC SPINE WITHOUT AND WITH INTRAVENOUS CONTRAST INDICATION: BACK PAIN, THORACIC , PT HAS HX OF ENDOMETRIAL CANCER R/O METASAS TECHNIQUE: Magnetic resonance images of the thoracic spine without and with intravenous contrast in multiple planes. COMPARISON: MRI thoracic spine dated July 18, 2019. FINDINGS: Vertebrae: Focal lesion demonstrating low signal intensity on T1 and T2 in the vertebral body of T5, measuring 1 cm, no change since the prior study. Metastatic lesion may have this appearance. Nevertheless since there is no change. This appears to be stable process. The thoracic vertebral column is well aligned. No acute fracture. Discs/spinal canal/neural foramina: No acute findings. No significant disc disease. No spinal canal stenosis. Spinal cord: The thoracic cord demonstrates no signal alteration. There is no mass within the cord. There is no mass within the central canal of the thoracic spine. There is no pathological enhancement within the cord. Soft tissues: The paraspinal soft tissues are unremarkable. Other findings: Following the IV administration of gadolinium no pathological enhancement is demonstrated. IMPRESSION: 1. Focal lesion demonstrating low signal intensity on T1 and T2 in the vertebral body of T5, measuring 1 cm, no change since the prior study. Metastatic lesion may have this appearance. Nevertheless since there is no change. This appears to be stable process. 2. No other convincing MRI evidence of metastatic disease on the current study. No change. Contrast Type: gadavist. Contrast Volume: 7 ml REPORT SIGNATURE ON FILE 08/01/2020 (13:15 Eastern Time ) Signed by: Gaby Peña M.D. Reported By Gaby Peña MD on 08/01/20 1315 Signed By Gaby Peña MD on 08/01/20 1315 Date Time CC: Victorino Meza M.D.; Gaby Peña MD Techn: FROJO Trans Dt/Tm: Trans by: DT Prt Dt/Tm: : Total DLP = 0.00 mGy-cm : Total Radiation Dose = 0.0000 mSv Lifetime Dose: 10.1400 mSv Health Concerns Health Concerns may be documented in an alternate section. Advance Directives Advance Directive Response Recorded Date/Time Advanced Directive No De 2019 11:03am Does Patient have a DNR? No September 13, 2020 11:03am Healthcare Proxy No Dece mb2019 11:03am Living Will Yes September 13, 2020 11:03am Chief Complaint and Reason for Visit Chief Complaint Sore Throat Shingles Insomnia follow-up Annual Physical Back pain Abdominal pain CA HX, THORACIC PAIN Abdominal pain Reason for Visit Herpes zoster Herpes zoster Insomnia due to psychological stress Chronic thoracic back pain Arthralgia Chronic thoracic back pain Encounters Encounter Location(s) Ar rival/Admit Date Discharge/Depart Date Provider(s) Departed Physician/Provider Office Visit -[facility] September 21, 2019 2:32pm September 21, 2019 3:00pm Victorino Meza Departed Physician/Provider Office Visit -[facility] October 12, 2019 9:33am October 9:56am Victorino Meza Departed Physician/Provider Office Visit -[facility] December 05, 2019 8:58am December 05, 2019 9:43am Victorino Meza Departed Physician/Provider Office Visit -[facility] May 13, 2020 11:12am May 13, 2020 11:49am Victorino Meza Departed Physician/Provider Office Visit -[facility] June 13, 2020 8:50am June 13, 2020 9:11am Victorino Meza Departed Physician/Provider Office Visit -[facility] June 20, 2020 2:13pm 2019 3:11pm Victorino Meza Registered Referred -MRI/MRA July 31, 2020 7:00am GREG MENDEZ NP Departed Physician/Provider Office Visit -[facility] September 13, 2020 10:37am September 13, 2020 11:09am Victorino Meza Recent Diagnosis Onset Date Herpes zoster Herpes zoster Insomnia due to psychological stress Chronic thoracic back pain Arthralgia Chronic thoracic back pain Assessments Diagnosis Onset Date Res olution Status Herpes zoster acute Herpes zoster acute Insomnia due to psychological stress acute Chronic thoracic back pain chronic Arthralgia acute Chronic thoracic back pain chronic Family History Relationship Condition A ge at Onset Recorded Date/Time Not Specified Myocardial infarction Unknown Functional Status No Functional Status information available Goals Goals may be documented in an alternate section. Immunizations No Immunization Information Available Mental Status No Mental Status Information Available Medical Equipment No Medical Equipment Information available Insurance Providers Guarantor LULA BROWER Address [address] [place] [address] [address] [address] Contact Info. Home Phone: Payer Policy Id Coverage Id Subscriber's Name Subscriber Id Effective Date Expiration Date AETNA [facility] [id number] Kenan Brower [id number] [employer]/EQUICOR [id number] LULA BROWER [id number] HUMAN [id number] LULA BROWER [id number] LULA BROWER [id number] 2014 CIGNA [facility] HUMAN MEDICARE [id number] LULA BROWER [id number] MEDICARE UPSTATE [id number] LULA BROWER [id number] [facility] [id number] Kenan Brower [id number] MEDICARE [id number] LULA BROWER [id number] [facility] HEALTH PLAN [id number] Kenan Brower Self Pay Self N/A [employer]. [id number] Kenan Brower [id number] Plan of Treatment she definitely is having reflux for the first time. will try nexium for 2 weeks and then re-evaluated. there has clearly been a marked psychological issue for a long isabel e and will discuss at length next time and try to refer her to psychiatry. there seems to be nothing acute. she will be seeing her oncologist next week an d i suggested that she discuss this with them, so that if they will be doing a scan, her abdominal pain can be taken into account. if they do not scan her, she will call and i will. if that is ne scott, consider gi consult. she will stop the omeprazole that she has been taking without effect. the entire visit was spent in discussion of options, what may be possible and e places that could be available depending upon her willingness to travel. now that her is retired, she is willing to travel. will start with the [facility]. i think t he lower chest/upper abdomen/thoracic spine pain is neuropathic and probably from the chemo as sugges sindy by her oncologist a few years ago. the newer joint aching and burning pain in the feet and hands is a mystery and will have to see what the specialist come up with. thus far the onl y evaluation beyond the oncologist was a neurosurgeon that found no cause for her pain. 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 the new joints do not form a specific pattern. she has a rheumat oid workup a year ago that was negative. we settled on a plan to take daily meloxicam for one wed and to recheck then. discussed the issues and recommended otc analgesics to use prn which she feels w ill be enough. recheck in one month when she returns from [place] if not resolved. discussed the various issues and the expected course of the illness. she will s tart valtrex and recheck in 4-5 days. her lorazepam dose will be lowered to 1mg hs. recheck this summer for annual. we discussed this pain. she has been consistently reluctant to accept that she is going to have to live with this pain. she is doing better, more active, with less episodes of pa in and the depression arising from it is much better. tried to reassure her that she is do ing much better than she was a year ago. the neuralgia has nearly resolved, it is likely that it will resolve completely. defer shingrix until 2021. Future Tests Future scheduled test information is unavailable Pending Tests Pending diagnostic test information is unavailable Future Visits Future appointment information is unavailable Referrals to Other Providers Reason for Referral Referral Start Date Provider Provider Conta ct Information Provider Address M54.6 - Pain in thoracic spine,G89.29 - Other chronic pain S epteer 2019 [facility] Future Procedures Future procedure information is unavailable Future Medications Future medication information is unavailable Patient Instructions Patient instructions are unavailable Social History Smoking Status Status Date of Observation Former smoker September 13, 2020 11: 03am Observation Status Date of Observation Not September 13, 2020 Observation Status Observation Response Adarsh e of Response Smoking Status Former smoker September 13, 2020 11:03am Alcohol Use Yes September 13, 2020 11:03am Substance Use No Decembe r 2019 11:03am Assigned Sex Female Vital Signs Vital Reading Result Ref erence Range Collection Date/Time Weight 156.00 [lb_av] September 21, 2019 2:43pm Body Temperature 99.5 [degF] 97.6-99.5 September 21, 2019 2:43pm Heart Rate 113 /min 60-1 00 September 21, 2019 2:43pm Respiratory rate 18 /min 12-September 21, 2019 2:43pm Oxygen saturation by Pulse oximetry 97 % 95- 100 September 21, 2019 2:43pm BP Systolic 122 mm[Hg] September 21, 2019 2:43pm BP Diastolic 60 mm[Hg] September 21, 2019 2:43pm Weight 156.00 [lb_av] October 12, 2019 9:40am Body Temperature 98.5 [degF] 97.6-99.5 October 12, 2019 9:40am Heart Rate 96 /min 60-100 October 12, 2019 9:40am Respiratory rate 16 /min 12-October 12, 2019 9:40am Oxygen saturation by Pulse oximetry 95 % 95- 100 October 12, 2019 9:40am BP Systolic 116 mm[Hg] October 12, 2019 9:40am BP Diastolic 72 mm[Hg] October 12, 2019 9:40am Weight 153.00 [lb_av] December 05, 2019 9:18am Heart Rate 91 /min 60-100 December 05, 2019 9:18am Respiratory rate 16 /min 10-03December 05, 2019 9:18am Oxygen saturation by Pulse oximetry 98 % 95- 100 December 05, 2019 9:18am BP Systolic 110 mm[Hg] December 05, 2019 9:18am BP Diastolic 62 mm[Hg] December 05, 2019 9:18am Body Temperature 97.9 [degF] 97.6-99.5 May 13, 2020 12:23pm Heart Rate 86 /min 60-100 May 13, 2020 12:23pm Respiratory rate 16 /min 10-03May 13, 2020 12:23pm Oxygen saturation by Pulse oximetry 98 % 95- 100 May 13, 2020 12:23pm BP Systolic 114 mm[Hg] May 13, 2020 12:23pm BP Diastolic 74 mm[Hg] May 13, 2020 12:23pm Height 64 [in_i] June 13, 2020 9:51am Weight 151.12 [lb_av] June 13, 2020 9:51am Body Temperature 98.2 [degF] 97.6-99.5 June 13, 2020 9:51am Heart Rate 72 /min June 13, 2020 9:51am Respiratory rate 18 /min 10-03June 13, 2020 9:51am BP Systolic 118 mm[Hg] June 13, 2020 9:51am BP Diastolic 76 mm[Hg] June 13, 2020 9:51am BMI (Body Mass Index) 25.9 kg/m2 June 13, 2020 9:51am Weight 150.00 [lb_av] June 20, 2020 3:45pm Body Temperature 97.1 [degF] 97.6-99.5 June 20, 2020 3:45pm Heart Rate 88 /min 60-100 June 20, 2020 3:45pm Respiratory rate 16 /min 10-03June 20, 2020 3:45pm Oxygen saturation by Pulse oximetry 99 % 95- 100 June 20, 2020 3:45pm BP Systolic 128 mm[Hg] June 20, 2020 3:45pm BP Diastolic 78 mm[Hg] June 20, 2020 3:45pm Heart Rate 99 /min 60-100 September 13, 2020 10:38am Respiratory rate 18 /min 10-03September 13, 2020 10:38am Oxygen saturation by Pulse oximetry 97 % 95- 100 September 13, 2020 10:38am BP Systolic 122 mm[Hg] September 13, 2020 10:38am BP Diastolic 76 mm[Hg] September 13, 2020 10:38am
--- OUTSIDE RECORDS SUMMARY | 2020-11-08 09:48 | CCD | Continuity of Care Document ---
Author Author Laura BENJAMIN M.D. Organization Unknown Address [address], [address] [place] [address] Phone [phone] Care Team Providers Care Retail Sales Associate Bilingual Name Role Phone Victorino Meza M.D. AUTM [phone] Dm Madsen M.D. AUTM [phone] Problems Description No Information Available Social History Type Date Description Comments Sex Unknown ETOH Use Denies alcohol use Tobacco Use Start: Unknown Denies Smoking Recreational Drug Use Denies Drug Use Allergies, Adverse Reactions, Alerts Active Allergies Reaction Severity Comments Date Oxycodone 01/12/2018 Ibuprofen 01/12/2018 Codeine 10/14/2020 Medications Active Medications SIG Qnty Indications Ordering Provide r Date Lorazepam 2mg Tablets 1tab po qhs Unknown Nortriptyline HCL 10mg Capsules 1cap po qhs Unknown Miralax 17GM/Scoop Powder use as directed qam Unknown Gas Relief Extra Strength 125mg Ca psules prn Unknown Nexium 40mg Capsules DR 1cap po qam Unknown Tums 500mg Chewtabs prn Unknown Immunizations Description No Information Available Vital Signs Date Vital Result Comment 10/18/2020 1:18pm BP Systolic 116 mmHg BP Diastolic 68 mmHg Height 64 inches 5'4" Weight 161.00 lb BMI (Body Mass Index) 27.6 kg/m2 [place] Body Weight 120 lb Weight 73.030 kg BSA (Body Surface Area) 1.78 m2 03/30/2018 10:42am BP Systolic 114 mmHg BP Diastolic 72 mmHg Height 64 inches 5'4" Weight 137.00 lb BMI (Body Mass Index) 23.5 kg/m2 [place] Body Weight 120 lb Weight 62.143 kg BSA (Body Surface Area) 1.67 m2 Results Description No Information Available Procedures Description No Information Available Medical Devices Description No Information Available Encounters Description No Information Available Assessments Date Code Description Provider 10/18/2020 R10.13 Epigastric pain Lamine Ch ala, M.D. 10/18/2020 R10.33 Periumbilical pain Lamine kapadia M.D. Plan of Treatment 10/18/2020 - Lamine Benjamin M.D.* R10.13 Epigastric pain * R10.33 Periumbilical pain * * Comments:* Possible differentials: Functional Status Description No Information Available Mental Status Description No Information Available Referrals Refer to Reason for Referral Status Appt Date Lamine Benjamin M.D. persistent abdominal pain Scheduled 10/18/[address] [place] [address], [address] [place] [address] [phone]
--- OUTSIDE RECORDS SUMMARY | 2020-11-08 09:48 | CCD | Continuity of Care Document ---
Author Author [facility] Organization [facility] Address [address] [place] [address] Phone Support Name Relationship Address Phone Tony Meza PRS [facility] [place] [address] GREG MENDEZ PRS [address] [place] [address] Allergies, Adverse Reactions, Alerts Allergen Type Severity [...] 21, 2019 3:26pm Duloxetine Discontinued PO daily April 21, 2019 7:27am April 21, 2019 8:09am Duloxetine Discontinued 30 MG PO 2 Times Per Day April 21, 2019 8:08am September 05, 2019 9:55am Lorazepam Discontinued 1 MG PO At Bedtime May 26, 2019 7:52am July 13, 2019 8:56am oks reg# [id number] Omeprazole Discontinued 40 MG PO daily May 26, 2019 7:53am July 28, 2019 10:49am Lorazepam Discontinued 2 MG PO At Bedtime July 13, 2019 8:57am August 14, 2019 8:28am oks reg# [id number] Duloxetine Discontinued 30 MG PO daily September 05, 2019 9:54am September 14, 2019 9:59am Omeprazole Discontinued 40 MG PO daily December 05, 2019 9:18am September 13, 2020 10:45am Valacyclovir Discontinued 1000 MG PO Q8H September 21, 2019 3:02pm October 12, 2019 9:39am Lorazepam Discontinued 2 MG PO At Bedtime October 12, 2019 9:57am November 13, 2019 10:47am [facility] reg# [id number] Meloxicam Discontinued 15 MG PO daily May [...] MG PO daily September 13, 2020 11:03am Sucralfate Active 1 GM PO before meals October 24, 2020 11:39am Solifenacin (Vesicare) 10 mg tablet Discontinued 10 [...] cream Discontinued 0.5 GM VG At Bedtime January 13, 2017 1:27pm December 30 2:00pm Insert 1/2 gram into vagaina 1-3 [...] Discontinued 30 MG PO Once Per Day 30 June 14, 2018 8:52am June 14, 2018 [...] Discontinued 30 MG PO Once Per Day 30 August 16, 2018 9:06am August 25, 2018 2:14pm Duloxetine Discontinued 30 MG PO Once Per Day August 25, 2018 2:14pm August 29, 2018 9:44am Duloxetine Discontinued 60 MG PO Once Per Day August 29, 2018 9:44am November 28, 2018 3:21pm Cyclobenzaprine Hcl Discontinued 1 TAB PO At Bedtime 30 November 28, 2018 3:24pm January 03, 2019 9:11am Celecoxib Discontinued 1 00 MG PO Once Per Day 60 January 03, 2019 9:13am February 21, 2019 3:25pm Omeprazole Discontinued 40 MG PO daily July 28, 2019 10:48am December 05, 2019 9:18am Lorazepam Discontinued 2 MG PO At Bedtime August 14, 2019 8:27am September 14, 2019 9:58am [facility] reg# [id number] Lorazepam Discontinued 2 MG PO At Bedtime September 14, 2019 9:56am October 12, 2019 9:58am nys reg# [id number] Duloxetine Discontinued 30 MG PO daily September 14, 2019 9:58am July 26, 2020 8:35am Lorazepam Discontinued 2 MG PO At Bedtime November 13, 2019 10:46am December 19, 2019 11:54am nys reg# [id number] Lorazepam Discontinued 2 MG PO At Bedtime December 19, 2019 11:53am January 31, 2020 11:42am nys reg# [id number] Lorazepam Discontinued 2 MG PO At Bedtime January 31, 2020 11:42am March 14, 2020 8:39am nys reg# [id number] Lorazepam Discontinued 2 MG PO At Bedtime March 14, 2020 8:38am April 22, 2020 9:47am nys reg# [id number] Lorazepam Discontinued 2 MG PO At Bedtime April 22, 2020 9:46am June 14, 2020 7:39am nys reg# [id number] Lorazepam Discontinued 2 MG PO At Bedtime June 14, 2020 7:38am July 26, 2020 7:42am [place] reg# [id number] Lorazepam Discontinued 2 MG PO At Bedtime July 26, 2020 7:41am August 26, 2020 10:11am nys reg# [id number] Nortriptyline Active 10 - 20 MG PO At Bedtime July 26, 2020 8:35am Lorazepam Discontinued 2 MG PO At Bedtime August 26, 2020 10:11am September 26, 2020 11:41am nys reg# [id number] Lorazepam Active 2 MG PO At Bedtime September 26, 2020 11:40am nys reg# [id number] Problems Active Problems Medical Problem Onset Date Status Chronic thoracic back pain Active Chronic major depressive disorder Active Herpes zoster Active Gastritis Active 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 GREG PARNELL OGUNSEDElisha MRI [id number] ATTENDING PHYSICIAN DATE OF DATE OF EXAM/TIME [...] M.D. Reported By Gaby Peña MD on 08/01/201314 Signed By Gaby Peña MD on 08/01/201314 Date Time CC: Victorino Meza M.D.; Gaby Peña MD Techn: ALYSIA Trans Dt/Tm: Trans by: DT Prt Dt/Tm: : Total DLP = 0.00 mGy-cm : Total Radiation Dose = 0.0000 mSv Lifetime Dose: 10.1400 mSv Health Concerns Health Concerns may be documented in an alternate section. Advance Directives Advance Directive Response Recorded Date/Time Advanced Directive No Bhanu vo 2020 12:04pm Does Patient have a DNR? No October 24, 2020 12:04pm Healthcare Proxy No Romaine fernandez 2020 12:04pm Living Will Yes October 24, 2020 12:04pm Chief Complaint and Reason for Visit Chief Complaint Insomnia follow-up Annual Physical Back pain Abdominal pain CA HX, THORACIC PAIN Abdominal pain Abdominal pain Reason for Visit Herpes zoster Insomnia due to psychological stress Chronic thoracic back pain Chronic thoracic back pain Encounters Encounter Location(s) Ar rival/Admit Date Discharge/Depart Date Provider(s) Departed Physician/Provider Office Visit -[facility] December 05, 2019 8:58am December 05, 2019 9:43am Victorino Meza Departed Physician/Provider Office Visit -[facility] May 13, 2020 11:12am May 13, 2020 11:49am Victorino Meza Departed Physician/Provider Office Visit -[facility] June 13, 2020 8:50am June 13, 2020 9:11am Victorino Meza Departed Physician/Provider Office Visit -[facility] June 20, 2020 2:13pm [facility] Victorino Meza Registered Referred -MRI/MRA July 31, 2020 7:00am GREG MENDEZ NP Departed Physician/Provider Office Visit -[facility] September 13, 2020 10:37am September 13, 2020 11:09am Victorino Meza Departed Physician/Provider Office Visit -[facility] October 24, 2020 11:31am October 24, 2020 12:08pm Victorino Warrensara Recent Diagnosis Onset Date Herpes zoster Insomnia due to psychological stress Chronic thoracic back pain Chronic thoracic back pain Assessments Diagnosis Onset Date Res olution Status Herpes zoster acute Insomnia due to psychological stress acute Chronic thoracic back pain chronic Chronic thoracic back pain chronic Family History Relationship Condition A ge at Onset Recorded Date/Time Not Specified Myocardial infarction Unknown Functional Status No Functional Status information available Goals Goals may be documented in an alternate section. Immunizations No Immunization Information Available Mental Status No Mental Status Information Available Medical Equipment No Medical Equipment Information available Insurance Providers Guarantor LULA BROWER Address [address] [place] [address] [address] [address] Contact Info. Home Phone: Payer Policy Id Coverage Id Subscriber's Name Subscriber Id Effective Date Expiration Date AETNA [facility] [id number] Kenan Brower [id number] [employer]/EQUICOR [id number] LULA BROWER [id number] [employer] [id number] LULA BROWER [id number] [employer] [id number] LULA BROWER [id number] 2014 [employer]IG[employer] P HUMANA MEDICARE [id number] LULA BROWER [id number] MEDICARE [place] [id number] LULA BROWER [id number] [facility] [id number] Kenan Brower [id number] MEDICARE [id number] LULA BROWER [id number] [facility] HE[facility] PLAN [id number] Kenan Brower Self Pay Self N/A BCBS OF [employer]. [id number] Kenan Brower [id number] Plan of Treatment she definitely is having reflux for the first time. will try nexium for 2 weeks and then re-evaluated. there has clearly been a marked psychological issue for a long and will discuss at length next time [...] and i will. if that is ne gative, consider gi consult. she will stop the omeprazole that she has been taking without effect. the entire visit was spent in discussion of options, what may be possible and e places that could be available depending upon her willingness to travel. now that her is retired, she is willing to travel. will start with the [facility]. i think t [...] for one wed and to recheck then. her lorazepam dose will be lowered to [...] - Other chronic pain S epteer 2019 [facility] Future Procedures Future procedure information is unavailable Future Medications Future medication information is unavailable Patient Instructions Patient instructions are unavailable Social History Smoking Status Status Date of Observation Former smoker October 24, 2020 12: 04pm Observation Status Date of Observation Not October 24, 2020 Observation Status Observation Response Adarsh e of Response Smoking Status Former smoker October 24, 2020 12:04pm Alcohol Use Yes October 24, 2020 12:04pm Substance Use No October 24, 2020 12:04pm Assigned Sex Female Vital Signs Vital Reading Result Ref erence Range Collection Date/Time Weight 153.00 [lb_av] December 05, 2019 9:18am [...] 13, 2020 9:51am Heart Rate 72 /min 60-100 June 13, 2020 9:51am Respiratory rate 18 /min -June 13, 2020 9:51am BP Systolic 118 mm[Hg] June 13, 2020 9:51am BP Diastolic 76 mm[Hg] June 13, 2020 9:51am BMI (Body Mass Index) 25.9 kg/m2 June 13, 2020 9:51am Weight 150.00 [lb_av] June 20, 2020 3:45pm Body Temperature 97.1 [degF] 97.6-99.5 June 20, 2020 3:45pm Heart Rate 88 /min 60-100 June 20, 2020 3:45pm Respiratory rate 16 /min -June 20, 2020 3:45pm Oxygen saturation by Pulse oximetry 99 % 95- 100 June 20, 2020 3:45pm BP Systolic 128 mm[Hg] June 20, 2020 3:45pm BP Diastolic 78 mm[Hg] June 20, 2020 3:45pm Heart Rate 99 /min 60-100 September 13, 2020 10:38am Respiratory rate 18 /min -September 13, 2020 10:38am Oxygen saturation by Pulse oximetry 97 % 95- 100 September 13, 2020 10:38am BP Systolic 122 mm[Hg] September 13, 2020 10:38am BP Diastolic 76 mm[Hg] September 13, 2020 10:38am Body Temperature 98.2 [degF] 97.6-99.5 October 24, 2020 11:36am Heart Rate 116 /min 60-1 00 October 24, 2020 11:36am Respiratory rate 16 /min -October 24, 2020 11:36am Oxygen saturation by Pulse oximetry 93 % 95- 100 October 24, 2020 11:36am BP Systolic 118 mm[Hg] October 24, 2020 11:36am BP Diastolic 86 mm[Hg] October 24, 2020 11:36am
--- OUTSIDE RECORDS SUMMARY | 2020-11-08 09:49 | CCD ---
Author Author [facility] Address Unknown Phone Unavailable Care Team Providers Care Pool Table Operator Name Role Phone Ogunsede, Leticia SECTION HAND HELPER Unavailable Unavailable Ogunsede, Leticia SECTION HAND HELPER Unavailable Unavailable Ogunsede, Leticia SECTION HAND HELPER Unavailable Unavailable Ogunsede, Leticia SECTION HAND HELPER Unavailable Unavailable Ogunsede, Leticia SECTION HAND HELPER Unavailable Unavailable Ogunsede, Leticia SECTION HAND HELPER Unavailable Unavailable Ogunsede, Leticia SECTION HAND HELPER Unavailable Unavailable Ogunsede, Leticia SECTION HAND HELPER Unavailable Unavailable Ogunsede, Leticia SECTION HAND HELPER Unavailable Unavailable Ogunsede, Leticia SECTION HAND HELPER Unavailable Unavailable Ogunsede, Leticia SECTION HAND HELPER Unavailable Unavailable Ogunsede, Leticia SECTION HAND HELPER Unavailable Unavailable Ogunsede, Leticia SECTION HAND HELPER Unavailable Unavailable Ogunsede, Leticia SECTION HAND HELPER Unavailable Unavailable Ogunsede, Leticia SECTION HAND HELPER Unavailable Unavailable Ogunsede, Leticia SECTION HAND HELPER Unavailable Unavailable Ogunsede, Leticia SECTION HAND HELPER Unavailable Unavailable Ogunsede, Leticia SECTION HAND HELPER Unavailable Unavailable Ogunsede, Leticia SECTION HAND HELPER Unavailable Unavailable Ogunsede, Leticia SECTION HAND HELPER Unavailable Unavailable Ogunsede, Leticia SECTION HAND HELPER Unavailable Unavailable Ogunsede, Leticia SECTION HAND HELPER Unavailable Unavailable Ogunsede, Leticia SECTION HAND HELPER Unavailable Unavailable Shambo, Tony Gleason MD Unavailable Unavailable Shambo, Tony Gleason MD Unavailable Unavailable Shambo, Tony Gleason MD Unavailable Unavailable Shambo, Tony Gleason MD Unavailable Unavailable Shambo, Tony Gleason MD Unavailable Unavailable Shambo, Tony Gleason MD Unavailable Unavailable Shambo, Tony Gleason MD Unavailable Unavailable Shambo, Tony Gleason MD Unavailable Unavailable Shambo, Tony Gleason MD Unavailable Unavailable Shambo, Tony Gleason MD Unavailable Unavailable Shambo, Tony Gleason MD Unavailable Unavailable Shambo, Tony Gleason MD Unavailable Unavailable Shambo, Tony Gleason MD Unavailable Unavailable Shambo, Tony Gleason MD Unavailable Unavailable Shambo, Toyn Gleason MD Unavailable Unavailable Shambo, Tony Gleason MD Unavailable Unavailable Shambo, Tony Gleason MD Unavailable Unavailable Shambo, Tony Gleason MD Unavailable Unavailable Shambo, Tony Gleason MD Unavailable Unavailable Shambo, Tony Gleason MD Unavailable Unavailable Shambo, Tony Gleason MD Unavailable Unavailable Shambo, Tony Gleason MD Unavailable Unavailable Shambo, Tony Gleason MD Unavailable Unavailable Shambo, Tony Gleason MD Unavailable Unavailable Shambo, Tony Gleason MD Unavailable Unavailable Shambo, Tony Gleason MD Unavailable Unavailable Shambo, Tony Gleason MD Unavailable Unavailable Shambo, Tony Gleason MD Unavailable Unavailable Shambo, Tony Gleason MD Unavailable Unavailable Shambo, Tony Gleason MD Unavailable Unavailable Shambo, Tony Gleason MD Unavailable Unavailable Shambo, Tony Gleason MD Unavailable Unavailable Shambo, Tony Gleason MD Unavailable Unavailable Shambo, Tony Gleason MD Unavailable Unavailable Shambo, Tony Gleason MD Unavailable Unavailable Shambo, Tony Gleason MD Unavailable Unavailable Shambo, Tony Gleason MD Unavailable Unavailable Shambo, Tony Gleason MD Unavailable Unavailable Shambo, Tony Gleason MD Unavailable Unavailable Shambo, Tony Gleason MD Unavailable Unavailable Shambo, Tony Gleason MD Unavailable Unavailable Shambo, Tony Gleason MD Unavailable Unavailable Shambo, Tony Gleason MD Unavailable Unavailable Shambo, Tony Gleason MD Unavailable Unavailable Shambo, Tony Gleason MD Unavailable Unavailable Shambo, Tony Gleason MD Unavailable Unavailable Shambo, Tony Gleason MD Unavailable Unavailable Shambo, Tony Gleason MD Unavailable Unavailable Shambo, Tony Gleason MD Unavailable Unavailable Shambo, Tony Gleason MD Unavailable Unavailable Shambo, Tony Gleason MD Unavailable Unavailable Shambo, Tony Gleason MD Unavailable Unavailable Shambo, Tony Gleason MD Unavailable Unavailable Shambo, Tony Gleason MD Unavailable Unavailable Shambo, Tony Gleason MD Unavailable Unavailable Shambo, Tony Gleason MD Unavailable Unavailable Shambo, Tony Gleason MD Unavailable Unavailable Shambo, Tony Gleason MD Unavailable Unavailable Shambo, Tony Gleason MD Unavailable Unavailable Shambo, Tony Gleason MD Unavailable Unavailable Shambo, Tony Gleason MD Unavailable Unavailable Shambo, Tony Gleason MD Unavailable Unavailable Shambo, Tony Gleason MD Unavailable Unavailable Shambo, Tony Gleason MD Unavailable Unavailable Ogunsede, Leticia SECTION HAND HELPER Unavailable Unavailable Ogunsede, Leticia SECTION HAND HELPER Unavailable Unavailable Ogunsede, Leticia SECTION HAND HELPER Unavailable Unavailable Ogunsede, Leticia SECTION HAND HELPER Unavailable Unavailable Ogunsede, Leticia SECTION HAND HELPER Unavailable Unavailable Ogunsede, Leticia SECTION HAND HELPER Unavailable Unavailable Ogunsede, Leticia SECTION HAND HELPER Unavailable Unavailable Ogunsede, Leticia SECTION HAND HELPER Unavailable Unavailable Ogunsede, Leticia SECTION HAND HELPER Unavailable Unavailable Ogunsede, Leticia SECTION HAND HELPER Unavailable Unavailable Ogunsede, Leticia SECTION HAND HELPER Unavailable Unavailable Ogunsede, Leticia SECTION HAND HELPER Unavailable Unavailable Ogunsede, Leticia SECTION HAND HELPER Unavailable Unavailable Ogunsede, Leticia SECTION HAND HELPER Unavailable Unavailable Ogunsede, Leticia SECTION HAND HELPER Unavailable Unavailable Ogunsede, Leticia SECTION HAND HELPER Unavailable Unavailable Ogunsede, Leticia SECTION HAND HELPER Unavailable Unavailable Ogunsede, Leticia SECTION HAND HELPER Unavailable Unavailable Ogunsede, Leticia SECTION HAND HELPER Unavailable Unavailable Ogunsede, Leticia SECTION HAND HELPER Unavailable Unavailable Ogunsede, Leticia SECTION HAND HELPER Unavailable Unavailable Ogunsede, Leticia SECTION HAND HELPER Unavailable Unavailable Ogunsede, Leticia SECTION HAND HELPER Unavailable Unavailable Shambo, Tony Gleason MD Unavailable Unavailable Shambo, Tony Gleason MD Unavailable Unavailable Shambo, Tony Gleason MD Unavailable Unavailable Shambo, Tony Gleason MD Unavailable Unavailable Shambo, Tony Gleason MD Unavailable Unavailable Shambo, Tony Gleason MD Unavailable Unavailable Shambo, Tony Gleason MD Unavailable Unavailable Shambo, Tony Gleason MD Unavailable Unavailable Shambo, Tony Gleason MD Unavailable Unavailable Shambo, Tony Gleason MD Unavailable Unavailable Shambo, Tony Gleason MD Unavailable Unavailable Shambo, Tony Gleason MD Unavailable Unavailable Shambo, Tony Gleason MD Unavailable Unavailable Shambo, Tony Gleason MD Unavailable Unavailable Shambo, Tony Gleason MD Unavailable Unavailable Shambo, Tony Gleason MD Unavailable Unavailable Shambo, Tony Gleason MD Unavailable Unavailable Shambo, Tony Gleason MD Unavailable Unavailable Shambo, Tony Gleason MD Unavailable Unavailable Shambo, Tony Gleason MD Unavailable Unavailable Shambo, Tony Gleason MD Unavailable Unavailable Shambo, Tony Gleason MD Unavailable Unavailable Shambo, Tony Gleason MD Unavailable Unavailable Shambo, Tony Gleason MD Unavailable Unavailable Shambo, Tony Gleason MD Unavailable Unavailable Shambo, Tony Gleason MD Unavailable Unavailable Shambo, Tony Gleason MD Unavailable Unavailable Shambo, Tony Gleason MD Unavailable Unavailable Shambo, Tony Gleason MD Unavailable Unavailable Shambo, Tony Gleason MD Unavailable Unavailable Shambo, Tony Gleason MD Unavailable Unavailable Shambo, Tony Gleason MD Unavailable Unavailable Shambo, Tony Gleason MD Unavailable Unavailable Shambo, Tony Gleason MD Unavailable Unavailable Shambo, Tony Gleason MD Unavailable Unavailable Shambo, Tony Gleason MD Unavailable Unavailable Shambo, Tony Gleason MD Unavailable Unavailable Shambo, Tony Gleason MD Unavailable Unavailable Shambo, Tony Gleason MD Unavailable Unavailable Shambo, Tony Gleason MD Unavailable Unavailable Shambo, Tony Gleason MD Unavailable Unavailable Shambo, Tony Gleason MD Unavailable Unavailable Shambo, Tony Gleason MD Unavailable Unavailable Shambo, Tony Gleason MD Unavailable Unavailable Shambo, Tony Gleason MD Unavailable Unavailable Shambo, Tony Gleason MD Unavailable Unavailable Shambo, Tony Gleason MD Unavailable Unavailable Shambo, Tony Gleason MD Unavailable Unavailable Shambo, Tony Gleason MD Unavailable Unavailable Shambo, Tony Gleason MD Unavailable Unavailable Shambo, Tony Gleason MD Unavailable Unavailable Shambo, Tony Gleason MD Unavailable Unavailable Shambo, Tony Gleason MD Unavailable Unavailable Shambo, Tony Gleason MD Unavailable Unavailable Shambo, Tony Gleason MD Unavailable Unavailable Shambo, Tony Gleason MD Unavailable Unavailable Shambo, Tony Gleason MD Unavailable Unavailable Shambo, Tony Gleason MD Unavailable Unavailable Shambo, Tony Gleason MD Unavailable Unavailable Shambo, Tony Gleason MD Unavailable Unavailable Shambo, Tony Gleason MD Unavailable Unavailable Shambo, Tony Victorino MD Unavailable Unavailable ShamboTony MD Unavailable Unavailable ShamboTony MD Unavailable Unavailable MELAVASQUEZ MD Unavailable Unavailable MELAVASQUEZ MD Unavailable Unavailable MELAVASQUEZ MD Unavailable Unavailable MELAVASQUEZ MD Unavailable Unavailable MELAVASQUEZ MD Unavailable Unavailable MELAVASQUEZ MD Unavailable Unavailable MELA, VASQUEZ OSBORN Unavailable Unavailable MELA, VASQUEZ OSBORN Unavailable Unavailable MELAVASQUEZ MD Unavailable Unavailable MELAVASQUEZ MD Unavailable Unavailable MELAVASQUEZ MD Unavailable Unavailable MELAVASQUEZ MD Unavailable Unavailable MELAVASQUEZ MD Unavailable Unavailable MELAVASQUEZ MD Unavailable Unavailable MELAVASQUEZ MD Unavailable Unavailable MELAVASQUEZ MD Unavailable Unavailable MELA, VASQUEZ OSBORN Unavailable Unavailable MELAVASQUEZ MD Unavailable Unavailable MELA, VASQUEZ OSBORN Unavailable Unavailable MELA, VASQUEZ OSBORN Unavailable Unavailable MELA, VASQUEZ OSBORN Unavailable Unavailable MELA, VASQUEZ OSBORN Unavailable Unavailable MELAVASQUEZ MD Unavailable Unavailable MELAVASQUEZ MD Unavailable Unavailable MELAVASQUEZ MD Unavailable Unavailable MELAVASQUEZ MD Unavailable Unavailable MELAVASQUEZ MD Unavailable Unavailable MELAVASQUEZ MD Unavailable Unavailable MELAVASQUEZ MD Unavailable Unavailable MELAVASQUEZ MD Unavailable Unavailable MELAVASQUEZ MD Unavailable Unavailable MELAVASQUEZ MD Unavailable Unavailable MELA, VASQUEZ OSBORN Unavailable Unavailable MELA, VASQUEZ OSBORN Unavailable Unavailable MELA, VASQUEZ OSBORN Unavailable Unavailable MELA, VASQUEZ OSBORN Unavailable Unavailable MELAVASQUEZ MD Unavailable Unavailable MELAVASQUEZ MD Unavailable Unavailable MELAVASQUEZ MD Unavailable Unavailable MELA, VASQUEZ OSBORN Unavailable Unavailable MELA, VASQUEZ OSBORN Unavailable Unavailable MELA, VASQUEZ OSBORN Unavailable Unavailable MELAVASQUEZ MD Unavailable Unavailable Re-disclosure Warning The records that you are about to access may contain information from federally-assisted alcohol or drug abuse programs. If such information is present, then the following federally mandated warning applies: This information has been disclosed to you from records protected by federal confidentiality rules (42 CFR part 2). The federal rules prohibit you from making any further disclosure of this information unless further disclosure is expressly permitted by the written consent of the person to whom it pertains or as otherwise permitted by 42 CFR part 2. A general authorization for the release of medical or other information is NOT sufficient for this purpose. The Federal rules restrict any use of the information to criminally investigate or prosecute any alcohol or drug abuse patient.The records that you are about to access may contain highly sensitive health information, the redisclosure of which is protected by Article 27-F of the [facility] Public Health law. If you continue you may have access to information: Regarding HIV / AIDS; Provided by facilities licensed or operated by the [facility] Office of Mental Health; or Provided by the [facility] Office for People With Developmental Disabilities. If such information is present, then the following [facility] mandated warning applies: This information has been disclosed to you from confidential records which are protected by state law. State law prohibits you from making any further disclosure of this information without the specific written consent of the person to whom it pertains, or as otherwise permitted by law. Any unauthorized further disclosure in violation of state law may result in a fine or fdc sentence or both. A general authorization for the release of medical or other information is NOT sufficient authorization for further disc losure. Family History Family Member Name Family Member Gender Family Member Status Date o f Status Description Data Source(s) Unknown Condition [facility] Unknown Condition [facility] Unknown Condition [facility] Unknown Condition [facility] Unknown Condition [facility] Unknown Condition [facility] Unknown Condition [facility] Unknown Condition [facility] Unknown Condition [facility] Unknown Condition [facility] Unknown Condition [facility] Unknown Unknown Problem [facility] Male Problem MEDENT ([facility]) Unknown Unknown Problem [facility] ([facility] ) father Unknown Unknown Problem [facility] ([facility], ) Unknown Male Problem MEDENT ([facility]) () - [place] Encounters Encounter Providers Location Date Indications Data Source(s ) Outpatient Attender: Victorino Meza MDReferrer: Victorino Meza MD 10/24/2020 11:31:00 AM EST - 10/24/2020 12:08:[address] [facility] Outpatient Attender: Leticia Du NPReferrer: Victorino Meza MD 10/15/2020 12:54:38 PM EST [facility] Outpatient Attender: Victorino Meza MDReferrer: Victorino Meza MD 09/13/2020 10:37:00 AM EST - 09/13/2020 11:09:[address] [facility] Recurring Patient Referrer: Victorino Meza MD 09/11/2020 07: 57:08 AM EST [facility] Recurring Patient Referrer: Victorino Meza MD 08/26/2020 05: 05:14 PM EST [facility] Outpatient Attender: VASQUEZ MCCURDY MDReferrer: Victorino Meza MD 08/16/2020 01:26:31 PM EST [facility] Recurring Patient Referrer: Victorino Meza MD 08/07/2020 01: 52:38 PM EDT [facility] Recurring Patient Referrer: Victorino Meza MD 07/31/2020 01: 33:53 PM EDT [facility] Outpatient Attender: Leticia Du NP 07/31/2020 01: 00:00 PM EDT [place] HX, THORACIC PAIN [facility] [place] HX, THORACIC PAIN Outpatient Attender: Leticia Du NPReferrer: Victorino Meza MD 07/08/2020 05:33:41 PM EDT [facility] Recurring Patient Referrer: Victorino Meza MD 07/08/2020 02: 28:51 PM EDT [facility] Recurring Patient Referrer: Victorino Meza MD 07/08/2020 02: 27:12 PM EDT [facility] Recurring Patient Referrer: Victorino Meza MD 07/08/2020 02: 24:48 PM EDT [facility] Recurring Patient Referrer: Victorino Meza MD 07/08/2020 02: 22:41 PM EDT [facility] Recurring Patient Referrer: Victorino Meza MD 07/08/2020 02: 22:11 PM EDT [facility] Recurring Patient Referrer: Victorino Meza MD 07/08/2020 07: 54:55 AM EDT [facility] Outpatient Attender: Victorino Meza MDReferrer: Victorino Meza MD 06/20/2020 03:13:[address] [facility] Recurring Patient Referrer: Victorino Meza MD 06/20/2020 12: 01:35 PM EDT [facility] Outpatient Attender: Victorino Meza MDReferrer: Victorino Meza MD 06/13/2020 09:50:00 AM EDT - 06/13/2020 10:11:[address] [facility] Outpatient Attender: Victorino Meza MDReferrer: Victorino Meza MD 05/13/2020 12:12:00 PM EDT - 05/13/2020 12:49:[address] [facility] Outpatient Attender: Victorino Meza MDReferrer: Victorino Meza MD 12/05/2019 08:58:00 AM EST - 12/05/2019 09:43:[address] [facility] Outpatient Attender: Victorino Meza MDReferrer: Victorino Meza MD 10/12/2019 09:33:00 AM EST - 10/12/2019 09:56:[address] [facility] Outpatient Attender: Victorino Meza MD 2018 02:32:00 PM EST - 09/21/2019 03:00:00 PM [facility] Medications Medication Brand Name Start Date Product Form Dose Route Admi nistrative Instructions Pharmacy Instructions Status Indications Reaction Description Data Source(s) Sucralfate 1000 MG Oral Tablet Sucralfate 10/24/2020 11:39:57 AM EST 1 [facility] Lorazepam 2 MG Oral Tablet Lorazepam 09/26/2020 11:40:55 AM EST 2 MG active [facility] Esomeprazole 40 MG Delayed Release Oral Capsule Esomep razole Magnesium Esomeprazole Magnesium 09/13/2020 11:03:16 AM EST 40 MG active [facility] Esomeprazole 40 MG Delayed Release Oral Capsule Esomep razole Magnesium Esomeprazole Magnesium 09/13/2020 11:03:16 AM EST 40 MG [facility] Prochlorperazine 10 MG Oral Tablet Prochlorperazine Ma leate Prochlorperazine Maleate 09/13/2020 10:45:37 AM EST 10 MG [facility] Prochlorperazine 10 MG Oral Tablet Prochlorperazine Ma leate Prochlorperazine Maleate 09/13/2020 10:45:37 AM EST 10 MG completed [facility] Lorazepam 2 MG Oral Tablet Lorazepam 08/26/2020 10:11:12 AM EST 2 MG completed [facility] Lorazepam 2 MG Oral Tablet Lorazepam 08/26/2020 10:11:12 AM EST 2 MG active [facility] Nortriptyline 10 MG Oral Capsule Nortriptyline 07/26/2020 09:35:50 AM EDT MG active [facility] Nortriptyline 10 MG Oral Capsule Nortriptyline 07/26/2020 09:35:50 AM EDT MG active [facility] Lorazepam 2 MG Oral Tablet Lorazepam 07/26/2020 08:41:48 AM EDT 2 MG completed [facility] Lorazepam 2 MG Oral Tablet Lorazepam 07/26/2020 08:41:48 AM EDT 2 MG completed [facility] Lorazepam 2 MG Oral Tablet Lorazepam 06/14/2020 08:38:49 AM EDT 2 MG active [facility] Lorazepam 2 MG Oral Tablet Lorazepam 06/14/2020 08:38:49 AM EDT 2 MG completed [facility] Lorazepam 2 MG Oral Tablet Lorazepam 06/14/2020 08:38:49 AM EDT 2 MG completed [facility] Prochlorperazine 10 MG Oral Tablet Prochlorperazine Ma leate Prochlorperazine Maleate 06/13/2020 09:57:53 AM EDT 10 MG active [facility] Prochlorperazine 10 MG Oral Tablet Prochlorperazine Ma leate Prochlorperazine Maleate 06/13/2020 09:57:53 AM EDT 10 MG active [facility] Prochlorperazine 10 MG Oral Tablet Prochlorperazine Ma leate Prochlorperazine Maleate 06/13/2020 09:57:53 AM EDT 10 MG completed [facility] Prochlorperazine 10 MG Oral Tablet Prochlorperazine Ma leate Prochlorperazine Maleate 06/13/2020 09:57:53 AM EDT 10 MG completed [facility] meloxicam 15 MG Oral Tablet Meloxicam Meloxicam 05/13/2020 12:40 :29 PM EDT 15 MG completed [facility] meloxicam 15 MG Oral Tablet Meloxicam Meloxicam 05/13/2020 12:40 :29 PM EDT 15 MG active [facility] meloxicam 15 MG Oral Tablet Meloxicam Meloxicam 05/13/2020 12:40 :29 PM EDT 15 MG completed [facility] meloxicam 15 MG Oral Tablet Meloxicam Meloxicam 05/13/2020 12:40 :29 PM EDT 15 MG completed [facility] meloxicam 15 MG Oral Tablet Meloxicam Meloxicam 05/13/2020 12:40 :29 PM EDT 15 MG completed [facility] Lorazepam 2 MG Oral Tablet Lorazepam 04/22/2020 10:46:59 AM EDT 2 MG active [facility] Lorazepam 2 MG Oral Tablet Lorazepam 04/22/2020 10:46:59 AM EDT 2 MG completed [facility] Lorazepam 2 MG Oral Tablet Lorazepam 04/22/2020 10:46:59 AM EDT 2 MG completed [facility] Lorazepam 2 MG Oral Tablet Lorazepam 04/22/2020 10:46:59 AM EDT 2 MG active [facility] Lorazepam 2 MG Oral Tablet Lorazepam 04/22/2020 10:46:59 AM EDT 2 MG completed [facility] Lorazepam 2 MG Oral Tablet Lorazepam 03/14/2020 09:38:55 AM EDT 2 MG completed [facility] Lorazepam 2 MG Oral Tablet Lorazepam 03/14/2020 09:38:55 AM EDT 2 MG completed [facility] Lorazepam 2 MG Oral Tablet Lorazepam 03/14/2020 09:38:55 AM EDT 2 MG completed [facility] Lorazepam 2 MG Oral Tablet Lorazepam 03/14/2020 09:38:55 AM EDT 2 MG completed [facility] Lorazepam 2 MG Oral Tablet Lorazepam 03/14/2020 09:38:55 AM EDT 2 MG completed [facility] Lorazepam 2 MG Oral Tablet Lorazepam 01/31/2020 12:42:13 PM EDT 2 MG completed [facility] Lorazepam 2 MG Oral Tablet Lorazepam 01/31/2020 12:42:13 PM EDT 2 MG completed [facility] Lorazepam 2 MG Oral Tablet Lorazepam 01/31/2020 12:42:13 PM EDT 2 MG completed [facility] Lorazepam 2 MG Oral Tablet Lorazepam 01/31/2020 12:42:13 PM EDT 2 MG completed [facility] Lorazepam 2 MG Oral Tablet Lorazepam 01/31/2020 12:42:13 PM EDT 2 MG completed [facility] Lorazepam 2 MG Oral Tablet Lorazepam 12/19/2019 12:53:51 PM EDT 2 MG completed [facility] Lorazepam 2 MG Oral Tablet Lorazepam 12/19/2019 12:53:51 PM EDT 2 MG completed [facility] Lorazepam 2 MG Oral Tablet Lorazepam 12/19/2019 12:53:51 PM EDT 2 MG completed [facility] Lorazepam 2 MG Oral Tablet Lorazepam 12/19/2019 12:53:51 PM EDT 2 MG completed [facility] Lorazepam 2 MG Oral Tablet Lorazepam 12/19/2019 12:53:51 PM EDT 2 MG completed [facility] Omeprazole 40 MG Delayed Release Oral Capsule Omeprazole 12/05/2019 09:18:00 AM EST 40 MG active [facility] Omeprazole 40 MG Delayed Release Oral Capsule Omeprazole 12/05/2019 09:18:00 AM EST 40 MG completed [facility] Omeprazole 40 MG Delayed Release Oral Capsule Omeprazole 12/05/2019 09:18:00 AM EST 40 MG completed [facility] Omeprazole 40 MG Delayed Release Oral Capsule Omeprazole 12/05/2019 09:18:00 AM EST 40 MG active [facility] Omeprazole 40 MG Delayed Release Oral Capsule Omeprazole 12/05/2019 09:18:00 AM EST 40 MG completed [facility] Omeprazole 40 MG Delayed Release Oral Capsule Omeprazole 12/05/2019 09:18:00 AM EST 40 MG completed [facility] Lorazepam 2 MG Oral Tablet Lorazepam 11/13/2019 10:46:10 AM EST 2 MG completed [facility] Lorazepam 2 MG Oral Tablet Lorazepam 11/13/2019 10:46:10 AM EST 2 MG completed [facility] Lorazepam 2 MG Oral Tablet Lorazepam 11/13/2019 10:46:10 AM EST 2 MG completed [facility] Lorazepam 2 MG Oral Tablet Lorazepam 11/13/2019 10:46:10 AM EST 2 MG completed [facility] Lorazepam 2 MG Oral Tablet Lorazepam 11/13/2019 10:46:10 AM EST 2 MG active [facility] Lorazepam 2 MG Oral Tablet Lorazepam 11/13/2019 10:46:10 AM EST 2 MG completed [facility] Lorazepam 2 MG Oral Tablet Lorazepam 10/12/2019 09:57:34 AM EST 2 MG completed [facility] Lorazepam 2 MG Oral Tablet Lorazepam 10/12/2019 09:57:34 AM EST 2 MG completed [facility] Lorazepam 2 MG Oral Tablet Lorazepam 10/12/2019 09:57:34 AM EST 2 MG completed [facility] Lorazepam 2 MG Oral Tablet Lorazepam 10/12/2019 09:57:34 AM EST 2 MG completed [facility] Lorazepam 2 MG Oral Tablet Lorazepam 10/12/2019 09:57:34 AM EST 2 MG completed [facility] Lorazepam 2 MG Oral Tablet Lorazepam 10/12/2019 09:57:34 AM EST 2 MG completed [facility] valacyclovir 1000 MG Oral Tablet Valacyclovir Valacyclovir 09/21/2019 03:02:06 PM EST 1000 MG completed [facility] valacyclovir 1000 MG Oral Tablet Valacyclovir Valacyclovir 09/21/2019 03:02:06 PM EST 1000 MG completed [facility] valacyclovir 1000 MG Oral Tablet Valacyclovir Valacyclovir 09/21/2019 03:02:06 PM EST 1000 MG completed [facility] valacyclovir 1000 MG Oral Tablet Valacyclovir Valacyclovir 09/21/2019 03:02:06 PM EST 1000 MG completed [facility] valacyclovir 1000 MG Oral Tablet Valacyclovir Valacyclovir 09/21/2019 03:02:06 PM EST 1000 MG completed [facility] valacyclovir 1000 MG Oral Tablet Valacyclovir Valacyclovir 09/21/2019 03:02:06 PM EST 1000 MG completed [facility] duloxetine 30 MG Delayed Release Oral Capsule Duloxetine Dul oxetine 09/14/2019 09:58:45 AM EST 30 MG active [facility] duloxetine 30 MG Delayed Release Oral Capsule Duloxetine Dul oxetine 09/14/2019 09:58:45 AM EST 30 MG active [facility] duloxetine 30 MG Delayed Release Oral Capsule Duloxetine Dul oxetine 09/14/2019 09:58:45 AM EST 30 MG completed [facility] duloxetine 30 MG Delayed Release Oral Capsule Duloxetine Dul oxetine 09/14/2019 09:58:45 AM EST 30 MG completed [facility] duloxetine 30 MG Delayed Release Oral Capsule Duloxetine Dul oxetine 09/14/2019 09:58:45 AM EST 30 MG active [facility] duloxetine 30 MG Delayed Release Oral Capsule Duloxetine Dul oxetine 09/14/2019 09:58:45 AM EST 30 MG active [facility] Lorazepam 2 MG Oral Tablet Lorazepam 09/14/2019 09:56:50 AM EST 2 MG completed [facility] Lorazepam 2 MG Oral Tablet Lorazepam 09/14/2019 09:56:50 AM EST 2 MG completed [facility] Lorazepam 2 MG Oral Tablet Lorazepam 09/14/2019 09:56:50 AM EST 2 MG completed [facility] Lorazepam 2 MG Oral Tablet Lorazepam 09/14/2019 09:56:50 AM EST 2 MG completed [facility] Lorazepam 2 MG Oral Tablet Lorazepam 09/14/2019 09:56:50 AM EST 2 MG completed [facility] Lorazepam 2 MG Oral Tablet Lorazepam 09/14/2019 09:56:50 AM EST 2 MG completed [facility] duloxetine 30 MG Delayed Release Oral Capsule Duloxetine Dul oxetine 09/05/2019 09:54:55 AM EST 30 MG completed [facility] duloxetine 30 MG Delayed Release Oral Capsule Duloxetine Dul oxetine 09/05/2019 09:54:55 AM EST 30 MG completed [facility] duloxetine 30 MG Delayed Release Oral Capsule Duloxetine Dul oxetine 09/05/2019 09:54:55 AM EST 30 MG completed [facility] duloxetine 30 MG Delayed Release Oral Capsule Duloxetine Dul oxetine 09/05/2019 09:54:55 AM EST 30 MG completed [facility] duloxetine 30 MG Delayed Release Oral Capsule Duloxetine Dul oxetine 09/05/2019 09:54:55 AM EST 30 MG completed [facility] duloxetine 30 MG Delayed Release Oral Capsule Duloxetine Dul oxetine 09/05/2019 09:54:55 AM EST 30 MG completed [facility] Lorazepam 2 MG Oral Tablet Lorazepam 08/14/2019 08:27:10 AM EST 2 MG completed [facility] Lorazepam 2 MG Oral Tablet Lorazepam 08/14/2019 08:27:10 AM EST 2 MG completed [facility] Lorazepam 2 MG Oral Tablet Lorazepam 08/14/2019 08:27:10 AM EST 2 MG completed [facility] Lorazepam 2 MG Oral Tablet Lorazepam 08/14/2019 08:27:10 AM EST 2 MG completed [facility] Lorazepam 2 MG Oral Tablet Lorazepam 08/14/2019 08:27:10 AM EST 2 MG completed [facility] Lorazepam 2 MG Oral Tablet Lorazepam 08/14/2019 08:27:10 AM EST 2 MG completed [facility] Omeprazole 40 MG Delayed Release Oral Capsule Omeprazole 07/28/2019 11:48:49 AM EDT 40 MG completed [facility] Omeprazole 40 MG Delayed Release Oral Capsule Omeprazole 07/28/2019 11:48:49 AM EDT 40 MG completed [facility] Omeprazole 40 MG Delayed Release Oral Capsule Omeprazole 07/28/2019 11:48:49 AM EDT 40 MG completed [facility] Omeprazole 40 MG Delayed Release Oral Capsule Omeprazole 07/28/2019 11:48:49 AM EDT 40 MG completed [facility] Omeprazole 40 MG Delayed Release Oral Capsule Omeprazole 07/28/2019 11:48:49 AM EDT 40 MG completed [facility] Omeprazole 40 MG Delayed Release Oral Capsule Omeprazole 07/28/2019 11:48:49 AM EDT 40 MG [facility] Insurance Providers Payer name Policy type / Coverage type Policy ID Covered green party ID Covered green party's relationship to gomez Policy Gomez Plan Information HUMANA O [id number] MEDICARE [id number] [facility] [id number] SP U [id number] HUMANA HMO [id number] SP [id number] Humana Medicare Supplement Plan F [id number] SELF [id number] Medicare C [id number] SELF [id number] HUMANA PPO O [id number] S [id number] MEDICARE C [id number] S [id number] HUMANA PPO [id number] SP [id number] C[employer] HE[employer]CARE [id number] SP U [id number] HUMANA PPO [id number] SP [id number] AETNA [id number] HU2 [id number] [employer] HE[employer]CARE [id number] HU2 U [id number] Aetna Commercial [id number] Self [id number] Aetna Commercial [id number] Self [id number] AETNA US HEALTHCARE TX [id number] HU2 [id number] Aetna Life [employer] Co F [id number] SPOUSE [id number] AETNA US HEALTHCARE [place] [id number] HU2 [id number] AETNA U [id number] Spouse [id number] AETNA U [id number] Spouse [id number] AETNA -RECURRING [id number] 01 [id number] AETNA -RECURRING [id number] 01 [id number] AETNA -O [id number] 01 [id number] AETNA US HEALTHCARE TX O [id number] S [id number] AETNA US HEALTHCARE [place] [id number] [id number] AET[employer] US HEALTHCARE [place] [id number] [id number] AETNA U [id number] Self [id number] AETNA -O/P [id number] 01 [id number] Aetna (pr) Commercial [id number] Self [id number] Aetna Commercial [id number] Family Dependent W [id number] AETNA US HEALTHCARE [place] [id number] HU2 [id number] Aetna Commercial [id number] Family Dependent [id number] AETNA HEALTHCARE [place] [id number] HU2 [id number] [place]BS [place] PPO [id number] SP [id number] AETNA HEA [id number] SP [id number] AETNA [id number] 18 [id number] Aetna Commercial [id number] Fa porfirio Dependent [id number] AETNA CO UNAVAILABLE 01 UNAVAILA BLE [employer] O [id number] S [id number] [employer] O [id number] S 1 [id number] [employer]BS B [id number] S DCI [id number] Surgeries/Procedures Procedure Description Date Indications Data Source(s) Magnetic resonance imaging of thoracic spine (procedure) 07/31/2020 02:39:[address] [facility] Magnetic resonance imaging of thoracic spine (procedure) 07/31/2020 02:39:00 PM EDT [facility] Results ID Date Data Source [id number] 11/03/2020 10:30:00 AM [facility] Name Value Range Interpretation Code Description Data Kanchan rce(s) Supporting Document(s) SARS coronavirus 2 RNA Not Detected [facility] This lab was ordered by [facility] and reported by [facility]. ID Date Data Source [id number] 10/24/2020 11:33:00 AM [facility] Patient Name: LAURA BROWER B: 1965 Sex: F Pt Unit #: [id number] Location:[facility] Provider: Visit Date/Time: 10/24/20 Primary Insurance: MEDICARE [employer] Secondary Insurance: HUMANA MEDICARE Intake Vital Signs 10/24/20 11:36 BP 118/86 Blood Pressure Location Lt brachial Position Sitting Respiration 16 Pulse 116 H Pulse Strength Normal Pulse Source Pulse Oximeter Temp 98.2 F Temp Source Skin Probe Pulse Oximetry (%) 93 L Oxygen Delivery Method room air Intake Visit Reasons: Abdominal pain Nurse Note: 54 year old here today with c/o epigastric pain that radiates to her left and right rib cage. She stated this has been going on for 2 years. Is patient in pain?: Yes (epigastric) Pain scale (1-10): 7 Allergies oxycodone Allergy (Intermediate, Unverified 06/14/18 10:15) Rash meloxicam Adverse Reaction (Intermediate, Unverified 06/14/18 09:52) gi upset Post menopausal: Yes Vision Wearing glasses?: Yes Fall Risk History of falls: No Ambulatory Aid:: None Gait/Transferring:: Normal HIV Testing Offer - ages 13-64 Requirement for HIV testing offer been met?: Declines today. Pretest education received and acknowledged SBIRT Annual Questionnaire Are you currently in recovery for alcohol or substance use?: No How many times in the past year have you had 4 or more drinks in a day?: None How many times in the past year have you used a recreational drug or used a prescription medication for nonmedical reasons?: None Coronavirus Screening Screening Have you traveled outside of [facility] or [employer] in the last 14 days.: No Has patient experienced coronavirus symptoms: No [facility] Medical History (Updated 10/24/20 @ 12:08 by Victorino Meza M.D.) Arthralgia Chronic major depressive disorder Chronic thoracic back pain Insomnia due to psychological stress urinary incontinence Uterine cancer Surgical History History of - surgery History of colonoscopy rectocele Status post tonsillectomy Status post tubal ligation Family History mgf Myocardial infarction Father No problems noted. MAT COUSINS X3 No problems noted. PAT AUNT No problems noted. Social History Does the Patient have a Healthcare Proxy: No Does Patient have a DNR?: No Does Patient have a Living Will?: Yes Hx Recent Travel (where): No Smoking Status: Former smoker HPI Additional HPI HPI Details: as above. she is here at my request due to her sadness about not finding the source and/ora cure for her chronic pain. she is concerned that her does not take it seriously. they have not talked about it. the back injections in [place] helped a little for a short time. her area coordinator has prescribed sucralfate and plans an egd on 11/08. 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 i outlined possibilities and asked her to return with her to discuss them and she agreed. Coding Level of Care Code 59379 Est Pt Intermediate Comp Exam Problem Focused Diagnoses Chronic thoracic back pain M54.6; G89.29 Time Spent (min) 25 <Electronically signed by Victorino Meza MD> 10/24/20 1211 Name Value Range Interpretation Code Description Data Kanchan rce(s) Supporting Document(s) ID Date Data Source [id number] 10/15/2020 12:54:38 PM EST [facility] PCName: Mary BrowerDOB: 1965Provider: Dc Du: 10/15/2020 Chief ComplaintThoracic pain radiating to both ribs and abdomen SPB Chief Complaint 2NYSW VAS PAIN Established: MA completing section: [employer] History of Present IllnessRecent test/procedures: Patient was asked and denies having any tests since their last visit. Patient was asked and denies being seen by any Physicians since their last visit. The patient was last seen by a [facility] provider on 08/16/2020. At today's visit patient presents with their Self Implanted Devices The patient does not have any implanted devices. The patient does not have a glucose monitoring device. Patient is not currently working. The patient is being seen for a follow-up. Pain Duration: couple years Exacerbating: prolonged driving Pain Score: a current pain level of 4/10. Condition type: The patient is being seen for a chronic condition. PCP. PAIN LOCATION: the pain is located in the mid-back and radiates to the right side of the ribs, left side of the ribs, right side of the abdomen and left side of the abdomen. PAST EVALUATION: The patient has been previously evaluated by a primary care provider. REVIEW OF PAST DIAGNOSTICS: have included: MRI. PAST TREATMENT has included: NON-OPIOID ANALGESICS (not effective) Includes Tylenol., NONSTEROIDAL ANTI-INFLAMMATORY drugs (not effective) (UNABLE TO TOLERATE NSAIDS DUE TO GI DISTRESS), PHYSICAL THERAPY/HOME EXERCISE exercise (not effective). - Nerve Block: Pertinent Information THORACIC, INTERLAMINAR (STEROID INJECTION). Targeting the T8 T9 level . (Dr. Mccurdy 09/10/20). 35-40 % of pain relief was provided which is ongoing. Allows patient to increase activity and functionality Including the following activities for longer periods of time with less pain: activities of daily living. INTERVAL EVENTS: include . Reports she had to be seen emergently at [facility] sometime in August for chest pain radiating to the thoracic spine. Reports her PCP referred to GI specialist for the hiatal hernia. Reports place on Nexium recently which has alon helpful with reflux. FUNCTIONAL LIMITATIONS: The patient's functional status is limited as follows: ability to maintain normal sleep pattern. Review of SystemsConstitutional: Normal. The patient presents with complaints of eyesight problems (wears glasses). ENT: normal. Cardiovascular: Normal. Respiratory: Normal. Gastrointestinal: Normal. Genitourinary: Normal. Musculoskeletal: midback pain. Psychiatric: depression (Sees PCP), but not suicidal. Endocrine: Normal. Hematologic/Lymphatic: Normal. Patient maintains at today's visit there has been no change in his/her hematologic history. I reviewed the above with the patient and I feel the ROS to be negative/normal other than Musculoskeletal. Active Problems 1. Back pain, thoracic (724.1) (M54.6) 2. Contracture of muscle (728.85) (M62.40) 3. 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 Thoracic radiculopathy (724.4) (M54.14) Allergies Codeine Derivatives Swelling:Mouth/Throat;; Recorded By: Katrin Ward; 07/08/2020 2:39:11 PMDenied Adhesive Tape Recorded By: Katrin Ward; 07/08/2020 2:39:11 PM Iodinated Contrast Media Recorded By: Katrin Ward; 07/08/2020 2:39:11 PM Latex Recorded By: Katrin Ward; 07/08/2020 2:39:11 PM Current Meds Gas Relief CHEW;Therapy: (Recorded:08Jul2020) to Recorded LORazepam TABS;Therapy: (Recorded:08Jul2020) to Recorded NexIUM PACK;Therapy: (Recorded:15Oct2020) to Recorded Nortriptyline HCl - 10 MG Oral Capsule; 1- 2 tab po hs MDD:2;Therapy: 08Jul2020 to (Evaluate:09Nov2020) Requested for: [id number]; LastRx:10Sep2020 Ordered Tylenol TABS;Therapy: (Recorded:79Imu4043) to Recorded Past Medical History Denied: History of anticoagulant therapy History of arthritis (V13.4) (Z87.39) History of chemotherapy (V87.41) (Z92.21) Denied: History of coagulation defect History of endometrial cancer (V10.42) (Z85.42) History of herpes zoster (V12.09) (Z86.19) History of Severe headache (784.0) (R51.9) Surgical History Denied: History of Cardioverter defibrillator insertion History of Cholecystectomy History of Cystocele repair History of Endometrial biopsy Denied: History of Pacemaker insertion History of Tonsillectomy Family History Family history of hypertension (V17.49) (Z82.49) Family history of cardiac disorder (V17.49) (Z82.49) Family history of malignant neoplasm of colon (V16.0) (Z80.0) Family history of arthritis (V17.7) (Z82.61) Family history of malignant neoplasm of breast (V16.3) (Z80.3) Social History Current non-drinker of alcohol (V49.89) (Z78.9) 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 Eyes: currently wearing eyeglasses. Ears, Nose, Mouth, Throat: Patient wearing a mask due to COVID-19. Respiratory: Normal chest expansion and respiratory effort. Gait and Station: Gait was normal. Skin: Warm, dry, acyanotic. Psychological: Alert and oriented to person, place and time. Mood and affect are pleasant and appropriate. Judgement intact. Insight normal without delusions or hallucinations. Denies suicidal/homicidal ideation. Assessment 1. Thoracic radiculopathy (724.4) (M54.14) 2. Back pain, thoracic (72 4.1) (M54.6) 3. Contracture of muscle (728.85) (M62.40) Plan 1. Follow-up in 2 months Follow Up Follow-up Status: Complete Done: [id number] Appointment for 15 or 30 minutes : Schedule 15 minute appointment Medication:. [facility] DIRECT CARE SUPERVISOR Information: DIRECT CARE SUPERVISOR was consulted by my designee and I have reviewed the information presented to me and find no aberrant compliance issues. Patient has been informed. Antidepressants Prescribed: NORTRIPTYLINE . ANTI-DEPRESSANT: I advised the patient today/previously regarding treatment with the above antidepressant(s). Patient is aware of rare but serious risk of potential suicidal thoughts, worsening depression, and/or serotonin syndrome. Patient agrees to discontinue medication and to contact [facility], friend(s) or family member(s), and/or 1 if this occurs. The prescribed medications are medically necessary for pain management and rehabilitation. Treatment includes: PROCEDURE(S): The patient defers blocks/procedures at this time FOLLOW UP: The patient should have a follow up visit in 2 months. CONTINUE TREATMENT: Laura will continue with the following: GASTRO-ENTEROLOGIST, ONCOLOGIST . Patient will follow up with their PCP. Laura is participating in a home exercise program and is encouraged to continue. Miscellaneous: - ACTIVITY COUNSELING: Discussed use of stationary/recumbent bike and/or continue exercises and stretches patient may have learned at PT. Patient encouraged to increase daily physical activity including ergonomics and aerobic activity. - IRONER: The patient was counseled on the following: treatment plan and future treatment options. D iscussion/[id number] female presents status post a thoracic interlaminar nerve block which is providing about 35-40% relief to her thoracic pain. Patient has been able to tolerate Nortriptyline at bedtime which has been helpful with nerve pain relief. She reports that she did have to go to the emergency room at [facility] due to her chest pain, a heart attack was ruled out. She reports that she was told at the ER that she probably had Costochondritis. She does have an upcoming appointment with gastrointestinal specialist due to hiatal hernia. At this time, we will hold off on any more procedures until she has been worked up for the hiatal hernia which could potentially be the cause of her chest pain. She was placed on Nexium by her PCP which has been helpful with the reflux. We will see her back in 2 months after she has seen her GI specialist and oncologist. She will continue Nortriptyline for neuropathic pain relief. Patient is agreeable. Signatures Electronically signed by : Leticia Du NP; Oct 15 2020 12:51PM EST (Author) Electronically signed by : Leticia Du NP; Oct 15 2020 12:53PM EST (Author) Electronically signed by : Vasquez Mccurdy MD; Oct 15 2020 12:54PM EST Name Value Range Interpretation Code Description Data Kanchan rce(s) Supporting Document(s) ID Date Data Source [id number] 09/13/2020 10:36:00 AM EST [facility] Patient Name: LAURA BROWER DO B: 1965 Sex: F Pt Unit #: [id number] Location:[facility] Provider: Visit Date/Time: 09/13/20 Primary Insurance: MEDICARE [employer] Secondary Insurance: HUMANA MEDICARE Intake Vital Signs 09/13/20 10:38 BP 122/76 Blood Pressure Location Rt brachial Position Sitting Respiration 18 Pulse 99 Pulse Strength Normal Pulse Source Pulse Oximeter Pulse Oximetry (%) 97 Oxygen Delivery Method room air Intake Visit Reasons: Abdominal pain Nurse Note: 54 year old here today with c/o mid upper gastric pain. She stated it has been going onfor months. She reported that she has a small hiatal hernia. She has burning type pain. It radiates, around to her back, she has chest pressure, If she does any strenuous work it increases the pain, it feels like she has something in her throat when she swallows. Burping more than usual with acid fluid reflux. Bloated and feels full all the time, no appetite, no weight loss. It hurtsmore when she lies on her back. Her stools are light tam. She takes Miralax. She occs. get nauseated but does not vomit. No aggravating foods noted. She stopped taking her omeprazole 2.5 weeks ago. She stated it seem to make her stomach worse. Is patient in pain?: Yes (Mid upper gastric) Pain scale (1-10): 6 Allergies oxycodone Allergy (Intermediate, Unverified 06/14/18 10:15) Rash meloxicam Adverse Reaction (Intermediate, Unverified 06/14/18 09:52) gi upset Post menopausal: Yes Vision Wearing glasses?: Yes Fall Risk History of falls: No Ambulatory Aid:: None Gait/Transferring:: Normal SBIRT Annual Questionnaire Are you currently in recovery for alcohol or substance use?: No How many times in the past year have you had 4 or more drinks in a day?: None How many times in the past year have you used a recreational drug or used a prescription medication for nonmedical reasons?: None Coronavirus Screening Screening Have you traveled outside of [facility] or [employer] in the last 14 days.: Yes Has patient experienced coronavirus symptoms: No PFSH Medical History Chronic major depressive disorder Chronic thoracic back pain Insomnia due to psychological stress urinary incontinence Uterine cancer Surgical History H istory of - surgery History of colonoscopy rectocele Status post tonsillectomy Status post tubal ligation Family History mgf Myocardial infarction Father No problems noted. MAT COUSINS X3 No problems noted. PAT AUNT No problems noted. Social History Does the Patient have a Healthcare Proxy: No Does Patient have a DNR?: No Does Patient have a Living Will?: Yes Hx Recent Travel (where): No Smoking Status: Former smoker HPI Additional HPI HPI Details: as above. Abdominal Pain History of Present Illness Associated symptoms: Reports heartburn Review of Systems ENT Reports dysphagia GI Reports bloating, Reports dysphagia and Reports heartburn Exam Const General: cooperative, healthy appearing, no acute distress and well groomed Nutritional Appearance: overweight Orientation: alert, awake and oriented x3 GI Inspection: Yes normal to inspection Palpation: soft, no hepatosplenomegaly and tender in the epigastrum Psych Appearance: grossly normal and well kempt Mental Status: mental status grossly normal Speech and Movement: speech and movement normal Mood: dysthymic mood Affect: sad Attitude: cooperative Thought Process: normal Thought Content: normal Insight: fair Judgment: fair Assessment Plan Assessment Plan (1) Abdominal pain: Code(s): R10.9 - Unspecified abdominal pain Plan - Victorino Meza M.D.: she definitely is having reflux for the first time. will try nexium for 2 weeks and then re-evaluated. there has clearly been a marked psychological issue for a long time and will discuss at length next time and try to refer her to psychiatry. Orders Other Medications: New: esomeprazole magnesium 40 mg PO QDAY 30 caps 0RF <Electronically signed by Victorino Meza MD> 09/13/20 1108 Name Value Range Interpretation Code Description Data Kanchan rce(s) Supporting Document(s) ID Date Data Source [id number] 09/06/2020 07:02:00 AM EST [facility] Name Value Range Interpretation Code Description Data Kanchan rce(s) Supporting Document(s) SARS coronavirus 2 RNA [Presence] in Res piratory specimen by CRUZITO with probe detection [facility] This lab was ordered by [facility] and reported by Earnest. ID Date Data Source [id number] 08/19/2020 01:14:19 PM EST [facility] PCName: Mary gonzales SimserDOB: 1965Provider: Collette Mccurdy: 08/16/2020 Chief ComplaintMid-back pain that radiates to the ribs, right side worse than left. Chief Complaint 2 MA completing section: Remigio Ward LPN Established IntakePatient has had the following tests/procedures since their last visit: MRI/CT Scan Patient was asked and denies seeing any physicians since their last visit. At today's visit patient presents with their Self . Patient is not currently working. Implanted Devices The patient does not have any implanted devices. Glucose Monitor Device The patient does not have a glucose monitoring device. The patient is being seen for a follow-up with MD. History of Present IllnessPain Location: The patient's pain is located in the mid-back and radiates to the ribs, right side worse than left. Pain Score: The pain is rated 4/10. Interval History: The patient is a 54-year-old female presenting with 4/10 mid-back pain that radiates to the ribs, right side worse than left. In looking at the dermatome mapping it seems to be more at the T8 level. This correlates with the MRI of the thoracic spine obtained on 07/18/2019 that reveals a disc protrusion at T8-9. There is a newer MRI of the thoracic spine that was obtained on 07/31/2020 which was mainly to see if the 1 cm focal lesion at T5 has changed when compared to the 07/18/2019 MRI. It has not davenport ed. The patient has a history of endometrial cancer and this was mainly to rule out further metastasis that could be causing her pain. At this point, at the 1- year interval, it does not seem to have changed much. The patient has had this discomfort for 1.5 years and it seems to radiate to the ribs between the xiphoid and above the umbilicus. Review of SystemsConstitutional: Normal. Eyes: Normal. ENT: normal. Cardiovascular: chest pain. Respiratory: Normal. Gastrointestinal: constipation. Genitourinary: Normal. Musculoskeletal: lower back pain and midback pain. Integumentary: Normal. Neurological: Normal. Psychiatric: Normal. Endocrine: Normal. Hematologic/Lymphatic: Normal. I reviewed the above with the patient and I feel the ROS to be negative/normal. Active Problems 1. Back pain, thoracic (724.1) (M54.6) 2. Contracture of muscle (728.85) (M62.40) 3. Thoracic radiculopathy (724.4) (M54.14) Allergies Codeine Derivatives Swelling:Mouth/Throat;; Recorded By: Katrin Ward; 07/08/2020 2 :39:11 PMDenied Adhesive Tape Recorded By: Katrin Ward; 07/08/2020 2:39:11 PM Iodinated Contrast Media Recorded By: Katrin Ward; 07/08/2020 2:39:11 PM Latex Recorded By: Katrin Ward; 07/08/2020 2:39:11 PM Current Meds Gas Relief CHEW;Therapy: (Recorded:86Nnr0728) to Recorded LORazepam TABS;Therapy: (Recorded:67Nyr2101) to Recorded Nortriptyline HCl - 10 MG Oral Capsule; 1- 2 tab po hs MDD:2;Therapy: 64Etu1128 to (Evaluate:50Awx0718) Requested for: 40Elr2470; LastRx:37Qkq8616 Ordered Omeprazole TBEC;Therapy: (Recorded:59Beo6401) to Recorded Tylenol TABS;Therapy: (Recorded:11Nie1670) to Recorded Past Medical History Denied: History of anticoagulant therapy History of arthritis (V13.4) (Z87.39) History of chemotherapy (V87.41) (Z92.21) Denied: History of coagulation defect History of endometrial cancer (V10.42) (Z85.42) History of herpes zoster (V12.09) (Z86.19) History of Severe headache (784.0) (R51) Surgical History Denied: History of Cardioverter defibrillator i nsertion History of Cholecystectomy History of Cystocele repair History of Endometrial biopsy Denied: History of Pacemaker insertion History of Tonsillectomy Family History Family history of hypertension (V17.49) (Z82.49) Family history of cardiac disorder (V17.49) (Z82.49) Family history of malignant neoplasm of colon (V16.0) (Z80.0) Family history of arthritis (V17.7) (Z82.61) Family history of malignant neoplasm of breast (V16.3) (Z80.3) Social History Current non-drinker of alcohol (V49.89) (Z78.9) 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 Eyes: Lids are atraumatic, no lesions, sclerae are anicteric. Ears, Nose, Mouth, Throat: external ears and nose without trauma. Patient wearing a mask due to COVID-19. Respiratory: Normal chest expansion and respiratory effort. Gait and Station: Gait was normal. Skin: Warm, dry, acyanotic. Psychological: Alert and oriented to person, place and time. Mood and affect are pleasant and appropriate. Judgement intact. Insight normal without delusions or hallucinations. Denies suicidal/homicidal ideation. Assessment 1. 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 Thoracic radiculopathy (724.4) (M54.14) PlanPatient was counseled on all of the following: Medications: The patient may continue to take her current medications. DIRECT CARE SUPERVISOR was consulted by my designee and I have reviewed the information presented to me and find no aberrant compliance issues. Patient has been informed. Nerve Blocks: An order was placed for a T8-9 interlaminar epidural steroid block without sedation. Clearance, no. NSAIDs, no. Sedation, no. ASIPP Risk Stratification of Patients presenting for Interventional Pain Procedures: Decreasing Morbidity of COVID-19 Points: 1Points: 0Points: 0Points: 1Points: 0Points: 0Points: 0Points: 2Total Points: 4 According to the Covid-19 ASIPP guidelines and the medical history as relayed to me by the patient, the Covid-19 risk stratification is low . NERVE BLOCK: The material risks, bene fits, alternatives have been discussed with the patient, including no treatment. They include, but are not limited to, bleeding, bruising, infection, damage to targeted and non-targeted tissue, increased pain, nerve injury or other reaction, if severe, could lead to CVA, arrhythmias or . The patient was given procedure instructions and educational material for this specific procedure at the time of the visit. Patient denies current treatment with anti- coagulation therapy. Activity Counseling Aerobics: The patient is encouraged to continue with exercises for her mid-back and spine as tolerated once her pain has improved. Discussion/SummaryThe patient is a 54-year-old female with a 1- year history of mid-back pain that radiates to the ribs which seems to fall into the T8 dermatome correlating with the disc protrusion noted at the T8-9 level based on the thoracic MRI. She will be scheduled for a T8-9 interlaminar epidural steroid block without sedation. She may continue to take her current medications and she is encouraged to continue with exercises for her mid-back once her pain is improved and as tolerated. ScribeNYSW Scribe Detail Form: Shawna Lam . (iScribes) Signatures Electronically signed by : Vasquez Mccurdy MD; Aug 16 2020 1:26PM EST Electronically signed by : Vasquez Mccurdy MD; Aug 19 2020 11:14AM EST Electronically signed by : Vasquez Mccurdy MD; Aug 19 2020 1:14PM EST (Author) Name Value Range Interpretation Code Description Data Kanchan rce(s) Supporting Document(s) ID Date Data Source [id number] 08/01/2020 01:15:00 PM EDT [facility] [address] [place] [address] [phone] NAME SEX PT STATUS ACCOUNT NUMBER LAURA BROWER PRE REF [id number] ORDERING PHYSICIAN LOCATION MEDICAL RECORD NO. [facility] [id number] ATTENDING PHYSICIAN DATE OF DATE OF EXAM/TIME Victorino Meza MD 1965 07/31/201438 TYPE / EXAM MRI Thoracic w/ w/o contrast REASON FOR EXAM BACK PAIN, [...] = 0.0000 mSv Lifetime Dose: 10.1400 mSv Name Value Range Interpretation Code Description Data Kanchan rce(s) Supporting Document(s) ID Date Data Source [id number] 07/08/2020 05:33:41 PM EDT [facility] PCName: Mary gonzales SimserDOB: 1965Provider: Fransico DuOS: 07/08/2020 Chief ComplaintThoracic pain radiating to both ribs and abdomen [facility] a [facility] Controlled Substance and Treatment Agreement. Patient has been given a copy of the treatment agreement and has been given a copy of our Prescription Information Fact Sheet. Do you have a Brace for your condition? Patient does not have a brace for their condition. Do you have a TENS Unit for your condition? Patient does not have a TENS Unit for their condition. Supplements: Patient is currently taking the following supplements: (see current med list). Nerve Conduction: Patient has not had a Nerve Conduction Test. At today's visit patient presents with their Self Patient is currently a homemaker. The patient is being seen for an initial evaluation. Pain Duration: 2 years Pain Quality: (Neuropathic) burning Pain Quality: (Nociceptive) aching, dull and sharp Timing: constant Palliation: heat, resting/laying down and Exacerbating: Picking up heavy objects, using arms Pain Score: a current pain level of 5/10, a minimum pain level of 3/10 and a maximum pain level of 7/10. Condition type: The patient is being seen for a chronic condition. PCP. PAIN LOCATION: the pain is located in the mid-back and radiates to the right side of the ribs, left side of the ribs, right side of the abdomen and left side of the abdomen. PAST EVALUATION: The patient has been previously evaluated by a primary care provider . Provider records were obtained, reviewed and on file. REVIEW OF PAST DIAGNOSTICS: have included: MRI . Records were obtained, reviewed and on file. PAST TREATMENT has included: NON-OPIOID ANALGESICS (not effective) Includes Tylenol., NONSTEROIDAL ANTI-INFLAMMATORY drugs (not effective) (UNABLE TO TOLERATE NSAIDS DUE TO GI DISTRESS), PHYSICAL THERAPY/HOME EXERCISE exercise (not effective). FUNCTIONAL LIMITATIONS: The patient's functional status is limited as follows: ability to maintain normal sleep pattern. Review of SystemsConstitutional: Normal. Eyes: eyesight problems. ENT: normal. Cardiovascular: chest pain and palpitations. Respiratory: shortness of breath. Gastrointestinal: abdominal pain, constipation and nausea. Genitourinary: Normal. Musculoskeletal: lower back pain and midback pain. Integumentary: Normal. Neurological: dizziness. Psychiatric: Normal. Endocrine: Normal. Hematologic/Lymphatic: Normal. The patient denies any clotting or bleeding disorders; denies seeing a registration representative. See initial patient paperwork dated 07/08/20. I reviewed the above with the patient and I feel the ROS to be negative/normal other than Musculoskeletal. Allergies Codeine Derivatives Swelling:Mouth/Throat;; Recorded By: Katrin Ward; 07/08/2020 2:39:11 PMDenied Adhesive Tape Recorded By: Katrin Ward; 07/08/2020 2:39:11 PM Iodinated Contrast Media Recorded By: Katrin Ward; 07/08/2020 2:39:11 PM Latex Recorded By: Katrin Ward; 07/08/2020 2:39:11 PM Current Meds DULoxetine HCl CPEP;Therapy: (Recorded:95Nso5209) to Recorded Dispense: 0 Days ; #: Sufficient; Refill: 0; DL = N; Record; Last Updated By: Katrin Ward; 07/08/2020 2:42:58 PM Gas Relief CHEW;Therapy: (Recorded:36Tus2587) to Recorded Dispense: 0 Days ; #: Sufficient; Refill: 0; DL = N; Record; Last Updated By: Katrin Ward; 07/08/2020 2:42:58 PM LORazepam TABS;Therapy: (Recorded:92Zsg5869) to Recorded Dispense: 0 Days ; #: Sufficient; Refill: 0; DL = N; Record; Last Updated By: Katrin Ward; 07/08/2020 2:42:58 PM Omeprazole TBEC;Therapy: (Recorded:60Qzb3088) to Recorded Dispense: 0 Days ; #: Sufficient; Refill: 0; DL = N; Record; Last Updated By: Katrin Ward; 07/08/2020 2:42:58 PM Tylenol TABS;Therapy: (Recorded:31Ilq9156) to Recorded Dispense: 0 Days ; #: Sufficient; Refill: 0; DL = N; Record; Last Updated By: Katrin Ward; 07/08/2020 2:42:58 PM Past Medical History Denied: History of anticoagulant therapy History of arthritis (V13.4) (Z87.39) History of chemotherapy (V87.41) (Z92.21) Denied: History of coagulation defect History of endometrial cancer (V10.42) (Z85.42) History of herpes zoster (V12.09) (Z86.19) History of Severe headache (784.0) (R51) Surgical History Denied: History of Cardioverter defibrillator insertion History of Cholecystectomy History of Cystocele repair History of Endometrial biopsy Denied: History of Pacemaker insertion History of Tonsillectomy Family History Family history of hypertension (V17.49) (Z82.49) Family history of cardiac disorder (V17.49) (Z82.49) Family history of malignant neoplasm of colon (V16.0) (Z80.0) Family history of arthritis (V17.7) (Z82.61) Family history of malignant neoplasm of breast (V16.3) (Z80.3) Social History Current non-drinker of alcohol (V49.89) (Z78.9) 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 Eyes: Lids are atraumatic, no lesions, sclerae are anicteric. currently wearing eyeglasses. Ears, Nose, Mouth, Throat: Patient wearing a mask due to COVID-19. Respiratory: Normal chest expansion and respiratory effort. Gait and Station: Gait was normal. Lungs are clear to auscultation bilaterally Cardiovascular: Extremities without peripheral edema, auscultation of heart reveals S1, S2 regular rate and rhythm, without murmur.Thoracic Spine: Inspection: No deformity, ecchymosis, erythema or swelling noted.Palpation/Tenderness: Tenderness on palpation of the LEFT: paraspinal and costochondral junction, but negative left Trapezius and negative left greater occipital. Tenderness on palpation of the RIGHT: paraspinal and costochondral junction, but negative right trapezius and negative right greater occipital. Palpatory Findings include bilateral muscle spasms of the paraspinal muscle.ROM: Range of motion increases pain. Skin: Warm, dry, acyanotic. Psychological: Alert and oriented to person, place and time. Mood and affect are pleasant and appropriate. Judgement intact. Insight normal without delusions or hallucinations. Denies suicidal/homicidal ideation. Assessment 1. Thoracic radiculopathy (724.4) (M54.14) 2. Back pain, thoracic (724.1) (M54.6) 3. Contracture of muscle (728.85) (M62.40) Plan 1. Start: Nortriptyline HCl - 10 MG Oral Capsule; 1- 2 tab po hs MDD:2 2. MRI ([facility]) Referral Treatment Treatment Status: Hold For - Scheduling Requested for: [id number] HAS HX OF ENDOMETRIAL CANCER, RULING OUT METASASES. LAST MRI OF THE T-SPINE SHOWED LESION IN APRIL 2019.Does Patient have SCS...? : NoFront Desk Reminder: : Schedule FMRI within 7 days with ORDERING providerIs this to rule out a mass? : Yes - I am ordering w/w/o contrastHas the patient had Lumbar surgery? : NoDo any of these apply to the patient? : _N/AAny Anaphylaxis Reactions? : NoContrast : With Without ContrastRequest Type : MedicareLaterality (Left, Right, Bilateral) 1 : BilateralMRI Reminder : Ins may require patient to have 4-6 wks of recent/documented PT on body partMRI Body Part : T-SpineIs this for a MILD MRI...? : No 3. Follow-up in 6 weeks Follow Up Follow-up Status: Complete Done: [id number] Appointment for 15 or 30 minutes : Schedule 15 minute appointment Medication:. [place] DIRECT CARE SUPERVISOR Information: DIRECT CARE SUPERVISOR was consulted by my designee and I have reviewed the information presented to me and find no aberrant compliance issues. Patient has been informed. Antidepressants Prescribed: Nortriptyline . ANTI-DEPRESSANT: I advised the patient today/previously regarding treatment with the above antidepressant(s). Patient is aware of rare but serious risk of potential suicidal thoughts, worsening depression, and/or serotonin syndrome. Patient agrees to discontinue medication and to contact [facility], friend(s) or family member(s), and/or 911 if this occurs. The prescribed medications are medically necessary for pain management and rehabilitation. Treatment includes: PROCEDURE(S): Blocks/procedures are deferred until further diagnostic studies are complete DIAGNOSTIC STUDIES: Based on patients symptoms a nd physical exam findings, I am ordering the following diagnostic tests: - MRI: of the THORACIC SPINE without and with GADOLINIUM. FOLLOW UP: The patient should have a follow up visit in 6 weeks. CONTINUE TREATMENT: Laura will continue with the following: ONCOLOGIST . Patient will follow up with their PCP. Laura is participating in a home exercise program and is encouraged to continue. Miscellaneous: - ACTIVITY COUNSELING: Discussed use of stationary/recumbent bike and/or continue exercises and stretches patient may have learned at PT. Patient encouraged to increase daily physical activity including ergonomics and aerobic activity. PHQ-9 Patient's PHQ-9 score was 10-14 suggesting a Moderate level of Depression. No further plan is required at this time. The PHQ-9 was administered today as part of routine health risk screening for depression and psychosocial functioning. Screening for depression in chronic pain patients is standard of care due to the high rate of co-morbidity between these illnesses. In conjunction with other health risk assessment screening data, such as the Opioid Risk Tool and Visual Analogue Scale, this information is imperative for determining the patients risk factors and potential comorbidities prior to determining a safe and effective treatment plan. - IRONER: The patient was counseled on the following: treatment plan and future treatment options. Discussion/[id number] female with thoracic pain which started after she when she began chemotherapy treatments for treatment of endometrial cancer diagnosed in November 2017 and has been in remission since July 2018. MRI reports of the thoracic spine completed on 04/20/19 reviewed the patient reviewed unchanged lesion seen at T5 vertebral body with a maximal diameter of 1 cm and multiple unchanged small disc protrusions are seen at T2 T3-T12 L1 with disc protrusions noted at T4-5, T6-7 and T8-9 contacting and minimally distorting the ventral aspect of the spinal cord with recommendations to follow up exam in 6 months to assess stability. At this time she is not a candidate for epidural steroid until we rule out that her lesion is malignant. She has tried physical therapy for the thoracic spine which did not provide any relief and in fact made her pain worse. We will obtain an updated MRI of the thoracic spine with and without contrast to rule out malignant involvement. We will see her back post-MR I of the T-spine to discuss its findings. She will trial Nortriptyline 10 mg 1-2 tablets at bedtime for any further pain relief as she does have difficulty with sleep due to her pain. Follow-up in 6 weeks to review MRI and assess medication effectiveness. She continues to follow up with her PCP for her complaints of chest pain, palpitations, and dizziness. Patient is agreeable. Signatures Electronically signed by : Leticia Du NP; Jul 08 2020 3:46PM EST (Author) Electronically signed by : Leticia Du NP; Jul 08 2020 3:47PM EST (Author) Electronically signed by : Leticia Du NP; Jul 08 2020 3:49PM EST (Author) Electronically signed by : Vasuqez Mccurdy MD; Jul 08 2020 5:33PM EST Name Value Range Interpretation Code Description Data Kanchan rce(s) Supporting Document(s) ID Date Data Source [id number] 06/20/2020 03:42:00 PM EDT [facility] Patient Name: LAURA BROWER : 1965 Sex: F Pt Unit #: [id number] Location:[facility] Provider: Visit Date/Time: 06/20/20 Primary Insurance: MEDICARE [employer] Secondary Insurance: [employer] MEDICARE Intake Vital Signs 06/20/20 15:45 Current Weight 150 lb Weight Measurement Method Standing Scale BP 128/78 Blood Pressure Location Lt brachial Position Sitting Respiration 16 Pulse 88 Pulse Strength Normal Temp 97.1 F L Temp Source Tympanic Pulse Oximetry (%) 99 Oxygen Delivery Method room air Intake Visit Reasons: Abdominal pain Nurse Note: Here today c/o abdominal pain ( dull ache , pushing on it hurts ) also states her chest feels heavy. Wire Machine Cutter Required: No Accompanied by: self Is patient in pain?: No Allergies oxycodone Allergy (Intermediate, Unverified 06/14/18 10:15) Rash meloxicam Adverse Reaction (Intermediate, Unverified 06/14/18 09:52) gi upset HIV Testing Offer - ages 13-64 Requirement for HIV testing offer been met?: Declines today. Pretest education received and acknowledged [facility] Medical History (Updated 05/13/20 @ 12:47 by Victorino Meza M.D.) Chronic major depressive disorder Chronic thoracic back pain Insomnia due to psychological stress urinary incontinence Uterine cancer Surgical History History of - surgery History of colonoscopy rectocele Status post tonsillectomy Status post tubal ligation Family History mgf Myocardial infarction Father No problems noted. MAT COUSINS X3 No problems noted. PAT AUNT No problems noted. Social History Does the Patient have a Healthcare Proxy: No Does Patient have a DNR?: No Does Patient have a Living Will?: Yes Hx Recent Travel (where): No Smoking Status: Former smoker HPI Abdominal Pain History of Present Illness Associated symptoms: Denies vomiting or heartburn Review of Systems ENT Denies dysphagia GI Denies melena, Reports bloating, Denies hematochezia, Denies change in bowel habits, Denies dysphagia, Denies heartburn, Denies nausea and Denies vomiting Exam Const General: cooperative, healthy appearing, no acute distress and well groomed Nutritional Appearance: overweight Orientation: alert, awake and oriented x3 HENMT Head: normal to inspection, normocephalic and atraumatic Ears: hearing grossly normal bilaterally, external ears normal, TM's normal bilaterally and EAC's normal General nose exam: external nose normal and no nasal discharge Face and sinus: normal facial exam Mouth: oral mucosae normal, lip normal, tongue normal, oropharynx normal and moist mucous membranes Throat: posterior oropharynx normal Eyes General: appearance normal, both eyes and all related structures Alignment and Position: alignment normal Periorbital: periorbital findings normal Eyelids: eyelids normal Conjunctivae: conjunctivae normal Sclera: sclerae normal Cornea: corneas normal Pupils: PERRL EOM: EOM intact bilaterally Neck Neck: normal visual inspection, no lymphadenopathy, supple and no JVD present Neck mass: No Thyroid: thyroid normal Chest Chest: normal inspection of the chest Resp Effort Inspection: normal respiratory effort Auscultation: clear to auscultation bilaterally Cardio Jugular venous pressure: no JVD Rate: regular rate Rhythm: regular rhythm Heart Sounds: S1 normal, S2 normal, no click, no gallops and no murmurs GI Palpation: soft, no hepatosplenomegaly, no guarding, no hernias, no masses and tender (mild ) in th eepigastrum Skin Other: no icterus Assessment Plan Assessment Plan (1) Abdominal pain: Code(s): R10.9 - Unspecified abdominal pain Plan - Victorino Meza M.D.: there seems to be nothing acute. she will be seeing her oncologist next week and i suggested that she discuss this with them, so that if they will be doing a scan, her abdominal pain can be taken into account. if they do not scan her, she will call and i will. if that is negative, consider gi consult. she will stop the omeprazole that she has been taking without effect. Electronically Signed By: <Electronically signed by Victorino Meza MD> Date/Time Signed: 06/20/20 1605 Name Value Range Interpretation Code Description Data Kanchan rce(s) Supporting Document(s) ID Date Data Source [id number] 06/13/2020 09:50:00 AM EDT [facility] Patient Name: LAURA BROWER : 1965 Sex: F Pt Unit #: [id number] Location:[facility] Provider: Visit Date/Time: 06/13/20 Primary Insurance: MEDICARE [employer] Secondary Insurance: [employer] MEDICARE Intake Vital Signs 06/13/20 09:51 Current Height 5 ft 4 in Current Weight 151 lb 2 oz Weight Measurement Method Standing Scale BMI 25.9 BP 118/76 Blood Pressure Location Lt brachial Position Sitting Respiration 18 Pulse 72 Pulse Strength Normal Pulse Source Palpation Temp 98.2 F Temp Source Temporal Artery Scan Intake Visit Reasons: Back pain Nurse Note: Pt states that she has mid back pain, was using meloxicam x 1 month, doesn't feel that it is helping much. Wire Machine Cutter Required: No Accompanied by: Self / Same as Patient Is patient in pain?: Yes Pain scale (1-10): 3 Allergies oxycodone Allergy (Intermediate, Unverified 06/14/18 10:15) Rash meloxicam Adverse Reaction (Intermediate, Unverified 06/14/18 09:52) gi upset Medications duloxetine 30 mg PO QDAY lorazepam 2 mg PO HS MDD 1 omeprazole 40 mg PO QDAY PRN polyethylene glycol 3350 (Miralax) 17 grams PO QDAY prochlorperazine maleate 10 mg PO QDAY PRN Post menopausal: No (Total hysterectomy) Vision Wearing glasses?: Yes Fall Risk History of falls: No Ambulatory Aid:: None Gait/Transferring:: Normal HIV Testing Offer - ages 13-64 HIV testing Offer: Yes Requirement for HIV testing offer been met?: Patient reports past refusal Hep C Testing Offered: Yes Hep C Requirement met: Patient reports past refusal SBIRT Annual Questionnaire Are you currently in recovery for alcohol or substance use?: No Coronavirus Screening Screening Have you traveled outside of [facility] or [facility] in the last 14 days.: No Has patient experienced coronavirus symptoms: No [facility] Medical History (Updated 05/13/20 @ 12:47 by Victorino Meza M.D.) Chronic major depressive disorder Chronic thoracic back pain Insomnia due to psychological stress urinary incontinence Uterine cancer Surgical History History of - surgery History of colonoscopy rectocele Status post tonsillectomy Status post tubal ligation Family History mgf Myocardial infarction Father No problems noted. MAT COUSINS X3 No problems noted. PAT AUNT No problems noted. Social History Does the Patient have a Healthcare Proxy: No Does Patient have a DNR?: No Does Patient have a Living Will?: Yes Hx Recent Travel (where): No Smoking Status: Former smoker HPI Additional HPI HPI Details: the meloxicam made no difference in any areas of pain and upset her stomach. she is interested in pursuing further evaluation and/or treatment. 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 now that her is retired, she is willing to travel. will start with the [facility]. i think the lower chest/upperabdomen/thoracic spine pain is neuropathic and probably from the chemo as suggested by her oncologist a few years ago. the newer joint aching and burning pain in the feet and hands is a mystery and will have to see what the specialist come up with. thus far the only evaluation beyond the oncologist was a neurosurgeon that found no cause for her pain. Orders: Referrals: Orthopedics Referral Orders Other Medications: Discontinued: meloxicam Discontinued Reason: MD Order 15 mg PO QDAY 30 tabs 1RF Electronically Signed By: <Electronically signed by Victorino Meza MD> Date/Time Signed: 06/13/20 1016 Name Value Range Interpretation Code Description Data Kanchan rce(s) Supporting Document(s) ID Date Data Source [id number] 05/13/2020 12:16:00 PM EDT [facility] Patient Name: LAURA BROWER : 1965 Sex: F Pt Unit #: [id number] Location:[facility] Provider: Visit Date/Time: 05/13/20 Primary Insurance: MEDICARE [employer] Secondary Insurance: [employer] MEDICARE Intake Vital Signs 05/13/20 12:23 BP 114/74 Blood Pressure Location Lt brachial Position Sitting Respiration 16 Pulse 86 Pulse Strength Normal Temp 97.9 F Temp Source Skin Probe Pulse Oximetry (%) 98 Oxygen Delivery Method room air Intake Visit Reasons: Annual Physical Nurse Note: Here today c/o all over joint pain ( toes, ankles, knees and fingers ) Wire Machine Cutter Required: No Accompanied by: self Is patient in pain?: No Allergies oxycodone Allergy (Intermediate, Unverified 06/14/18 10:15) Rash meloxicam Adverse Reaction (Intermediate, Unverified 06/14/18 09:52) gi upset HIV Testing Offer - ages 13-64 Requirement for HIV testing offer been met?: Declines today. Pretest education received and acknowledged [facility] Medical History Chronic major depressive disorder Chronic thoracic back pain Insomnia due to psychological stress urinary incontinence Uterine cancer Surgical History History of - surgery History of colonoscopy rectocele Status post tonsillectomy Status post tubal ligation Family History mgf Myocardial infarction Father No problems noted. MAT COUSINS X3 No problems noted. PAT AUNT No problems noted. Social History Does the Patient have a Healthcare Proxy: No Does Patient have a DNR?: No Does Patient have a Living Will?: Yes Hx Recent Travel (where): No Sickle cell Sickle Cell Screening:: Not indicated HPI Additional HPI HPI Details: as above. her lower chest and mid back pain have been present since her chemotherapy 2-3 years ago. for the past 6 weeks she has been having pain in both second to PIP's, both 4th finger PIP's and both ankles and knees. the pain is worse in the am. she has taken a few doses of meloxicam and it seems to help, especially the back pain. Review of Systems Musc Denies abnormal gait, Reports back pain, Denies myalgias, Denies atrophy, Denies deformity, Reports arthralgias, Denies joint swelling, Denies limited range of motion, Denies muscle weakness, Denies stiffness and Denies tingling Neuro Denies abnormal gait and Denies tingling Exam Const General: cooperative, healthy appearing, no acute distress and well groomed Nutritional Appearance: well nourished Orientation: alert, awake and oriented x3 Musc Other: the involved joints as noted about have no objective abnormality. Assessment Plan Assessment Plan (1) Arthralgia: Status: Acute Code(s): M25.50 - Pain in unspecified joint SNOMED Code(s): 74008975 Category: Medical Plan - Victorino Meza M.D.: the back and lower chest pain has been worked up and thought to be neuropathic secondary to chemotherapy. the new joints do not form a specific pattern. she has a rheumatoid workup a year ago that was negative. we settled on a plan to take daily meloxicam for one month and to rec heck then. Orders Other Medications: New: meloxicam 15 mg PO QDAY 30 tabs 1RF Electronically Signed By: <Electronically signed by Victorino Meza MD> Date/Time Signed: 05/13/20 1249 Name Value Range Interpretation Code Description Data Kanchan rce(s) Supporting Document(s) ID Date Data Source [id number] 12/05/2019 09:14:00 AM [facility] Patient Name: LAURA BROWER : 1965 Sex: F Pt Unit #: [id number] Location:[facility] Provider: Visit Date/Time: 12/05/19 Primary Insurance: [facility] Secondary Insurance: Self Pay Intake Vital Signs 12/05/19 09:18 Current Weight 153 lb Weight Measurement Method Standing Scale BP 110/62 Blood Pressure Location Lt brachial Position Sitting Respiration 16 Pulse 91 Pulse Strength Normal Pulse Oximetry (%) 98 Oxygen Delivery Method room air Intake Visit Reasons: Insomnia follow-up Nurse Note: Here today for shingles f/u . Pt states the shingles on the right side of her ear are getting better but still there . Continues to take lorazepam at to help her sleep with goodeffect . Wire Machine Cutter Required: No Accompanied by: self Is patient in pain?: No Allergies oxycodone Allergy (Intermediate, Unverified 06/14/18 10:15) Rash meloxicam Adverse Reaction (Intermediate, Unverified 06/14/18 09:52) gi upset HIV Testing Offer - ages 13-64 Requirement for HIV testing offer been met?: Declines today. Pretest education received and acknowledged [facility] Social History Does the Patient have a Healthcare Proxy: No Does Patient have a DNR?: No Does Patient have a Living Will?: Yes Hx Recent Travel (where): No HPI Additional HPI HPI Details: as above. she feels that she sleeps as well on half a tab of lorazepam as a whole. she isstill taking 1-2 hours to initiate sleep, but sleeping through the night. she has been more active. the pain in her right head has decreased to an intermittent itch in the right ear. she has a skin lesion on her right neck that she would like looked at. Review of Systems Psych Reports abnormal sleep pattern, Denies anxiety, Denies change in appetite, Denies depression, Denieshopelessness and Denies irritability Exam Const General: cooperative, healthy appearing, no acute distress and well groomed Nutritional Appearance: overweight Orientation: alert, awake and oriented x3 Skin Rashes: no rashes Other: small skin tag right anterior neck. Psych Appearance: grossly normal and well kempt Mental Status: mental status grossly normal Speech and Movement: speech and movement normal Mood: congruent mood Affect: normal affect Attitude: cooperative Thought Process: normal Thought Content: normal Insight: insight good Judgment: judgment good Assessment Plan Assessment Plan (1) Insomnia due to psychological stress: Status: Acute Code(s): F51.02 - Adjustment insomnia SNOMED Code(s): 283601364 Category: Medical Plan - Victorino Meza M.D.: her lorazepam dose will be lowered to 1mg hs. recheck this summer for annual. 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 she has been consistently rel uctant to accept that she is going to have to live with this pain. she is doing better, more active, with less episodes of pain and the depression arising from it is much better. tried to reassure her that she is doing much better thanshe was a year ago. (3) Herpes zoster: Status: Acute Comment: post herpetic neuralgia Code(s): B02.9 - Zoster without complications SNOMED Code(s): 7242311 Category: Medical Plan - Victorino Meza M.D.: the neuralgia has nearly resolved, it is likely that it will resolve completely. defer shingrix until 2021. Electronically Signed By: <Electronically signed by Victorino Meza MD> Date/Time Signed: 12/05/19 0942 Name Value Range Interpretation Code Description Data Kanchan rce(s) Supporting Document(s) ID Date Data Source [id number] 10/12/2019 09:37:00 AM [facility] Patient Name: LAURA BROWER : 1965 Sex: F Pt Unit #: [id number] Location:[facility] Provider: Visit Date/Time: 10/12/19 Primary Insurance: P Secondary Insurance: Self Pay Intake Vital Signs 10/12/19 09:40 Current Weight 156 lb BP 116/72 Blood Pressure Location Lt brachial Position Sitting Respiration 16 Pulse 96 Pulse Strength Normal Temp 98.5 F Temp Source Tympanic Pulse Oximetry (%) 95 Oxygen Delivery Method room air Intake Visit Reasons: Shingles Nurse Note: Completed valacyclovir for her shingles but states her right side of her scalp is very tender also right ear . Wire Machine Cutter Required: No Accompanied by: self Is patient in pain?: No Allergies oxycodone Allergy (Intermediate, Unverified 06/14/18 10:15) Rash meloxicam Adverse Reaction (Intermediate, Unverified 06/14/18 09:52) gi upset HIV Testing Offer - ages 13-64 R equirement for HIV testing offer been met?: Declines today. Pretest education received and acknowledged [facility] Surgical History History of - surgery History of colonoscopy rectocele Status post tonsillectomy Status post tubal ligation Social History Does the Patient have a Healthcare Proxy: No Does Patient have a DNR?: No Does Patient have a Living Will?: Yes Hx Recent Travel (where): No HPI Additional HPI HPI Details: as above. her initial symptoms resolved nearly completely while on the valtrex, but over the past week the right scalp and ear have started to be very sensitive with a few episodes of vertigo. Rash Current symptoms: Denies erythema or pruritis Review of Systems Skin/Breast Denies change in hair, Denies changing lesions, Denies pruritus, Denies erythema, Denies rash, Reports skin pain and Denies sores Exam Const General: cooperative, healthy appearing, no acute distress, well developed and well groomed Nutritional Appearance: overweight Orientation: alert, awake and oriented x3 HENMT Head: scalp tenderness (right temporal behind the ear is sensitive to light touch) Ears: TM's normal bilaterally Eyes General: appearance normal, both eyes and all related structures Alignment and Position: alignment normal Periorbital: periorbital findings normal Eyelids: eyelids normal Conjunctivae: conjunctivae normal Sclera: sclerae normal Cornea: corneas normal Pupils: PERRL EOM: EOM intact bilaterally Neck Other: original rash has faded and skin is not sensitive Assessment Plan Assessment Plan (1) Herpes zoster: Status: Acute Comment: post herpetic neuralgia Code(s): B02.9 - Zoster without complications SNOMED Code(s): 3913885 Category: Medical Plan - Victorino Meza M.D.: discussed the issues and recommended otc analgesics to use prn which she feels will be enough. recheck in one month when she returns from [place] if not resolved. Orders Other Medications: Changed: From: lorazepam nys reg# [id number] 2 mg PO HS 30 tabs 0RF MDD 1 To: lorazepam nys reg# [id number] 2 mg PO HS 30 tabs 0RF MDD 1 Electronically Signed By: <Electronically signed by Victorino Meza MD> Date/Time Signed: 10/12/19 1004 Name Value Range Interpretation Code Description Data Kanchan rce(s) Supporting Document(s) ID Date Data Source [id number] 09/21/2019 02:40:00 PM [facility] Patient Name: LAURA BROWER : 1965 Sex: F Pt Unit #: [id number] Location:[facility] Provider: Visit Date/Time: 09/21/19 Primary Insurance: [employer] Secondary Insurance: Self Pay Intake Vital Signs 09/21/19 14:43 Current Weight 156 lb BP 122/60 Blood Pressure Location Lt brachial Position Sitting Respiration 18 Pulse 113 H Pulse Strength Normal Temp 99.5 F Temp Source Tympanic Pulse Oximetry (%) 97 Oxygen Delivery Method room air Intake Visit Reasons: Sore Throat Nurse Note: 53 year old female presents today for c/o stiff neck , sore throat and LIRA since yesterday. Wire Machine Cutter Required: No Accompanied by: self Is patient in pain?: Yes (throat pain ) Pain scale (1-10): 3 Allergies oxycodone Allergy (Intermediate, Unverified 06/14/18 10:15) Rash meloxicam Adverse Reaction (Intermediate, Unverified 06/14/18 09:52) gi upset HIV Testing Offer - ages 13-64 Requirement for HIV testing offer been met?: Declines today. Pretest education received and acknowledged [facility] Medical History Chronic major depressive disorder (Chronic) Chronic thoracic back pain (Chronic) Insomnia due to psychological stress (Acute) urinary incontinence Uterine cancer (Chronic) Surgical History (Updated 09/05/19 @ 10:25 by Victorino Meza M.D.) History of - surgery History of colonoscopy rectocele Status post tonsillectomy Status post tubal ligation Social History Does the Patient have a Healthcare Proxy: No Does Patient have a DNR?: No Does Patient have a Living Will?: Yes Hx Recent Travel (where): No HPI Additional HPI HPI Details: as above. she has noted a rash starting behind her right ear and radiating down to her mid anterior neck. it is slightly painful and has had some lancinating pain over the right lower occiput. Sore Throat (adult) * Current symptoms: Denies cough, Denies nasal congestion and Denies vomiting Associated symptoms: Denies malaise Review of Systems Const Denies chills, Denies fever(s) and Denies malaise ENT Denies mouth lesions, Denies nasal congestion, Denies nasal discharge, Denies post nasal drip and Reports sore throat Resp Denies cough GI Denies nausea and Denies vomiting Exam Const General: cooperative, healthy appearing, no acute distress and well groomed Nutritional Appearance: overweight Orientation: alert, awake and oriented x3 HENMT Head: normal to inspection, normocephalic and atraumatic Ears: hearing grossly normal bilaterally, external ears normal, TM's normal bilaterally and EAC's normal General nose exam: external nose normal and no nasal discharge Face and sinus: normal facial exam Mouth: oral mucosae normal, lip normal, tongue normal, oropharynx normal and moist mucous membranes Throat: posterior oropharynx normal Neck Neck: no lymphadenopathy and supple Neck mass: No Thyroid: thyroid normal Chest Chest: normal inspection of the chest Skin Other: 6-8 round red large papules a few with tinny vesicles arranged from behind the right ear downthe lateral neck to the right side of the thyroid cartilage. Assessment Plan Assessment Plan (1) Herpes zoster: Current Visit: No Status: Acute Code(s): B02.9 - Zoster without complications SNOMED Code(s): 2324195 Category: Medical Plan - Victorino Meza M.D.: discussed the various issues and the expected course of the illness. she will start valtrex and recheck in 4-5 days. Orders Other Medications: New: valacyclovir 1,000 mg PO Q8H 21 tabs 0RF Electronically Signed By: <Electronically signed by Victorino Meza MD> Date/Time Signed: 09/21/19 1513 Name Value Range Interpretation Code Description Data Kanchan rce(s) Supporting Document(s) Procedure Social History Code Duration Value Status Description Data Source(s ) 10/24/2020 12:04:00 PM EST No completed No [facility] 10/24/2020 12:04:00 PM EST Yes completed Yes [facility] 10/24/2020 12:04:00 PM EST Former smoker completed Former smoker [facility] Smoking 10/24/2020 12:04:00 PM EST Former smoker completed Former smoker [facility] 09/13/2020 11:03:00 AM EST No completed No [facility] 09/13/2020 11:03:00 AM EST Yes completed Yes [facility] 09/13/2020 11:03:00 AM EST Former smoker completed Former smoker [facility] Smoking 09/13/2020 11:03:00 AM EST Former smoker completed Former smoker [facility] 12/05/2019 11:21:00 AM EST No completed No [facility] 12/05/2019 11:21:00 AM EST Yes completed Yes [facility] 12/05/2019 11:21:00 AM EST No completed No [facility] 12/05/2019 11:21:00 AM EST Yes completed Yes [facility] 12/05/2019 11:21:00 AM EST No completed No [facility] 12/05/2019 11:21:00 AM EST Yes completed Yes [facility] Vital Signs ID Date Data Source UNK Name Value Range Interpretation Code Description Data Source(s) Body surface area Derived from formula 1.78 m2 1.78 m2 [facility] ([facility]) Body weight 73.030 kg 73.030 kg [facility] ([facility]) [place] body weight 120 [lb_av] 120 [lb_av] [facility] Body mass index (BMI) [Ratio] 27.6 kg/m2 27.6 k g/m2 [facility] ([facility]) Body weight 161.00 [lb_av] 161.00 [lb_av] [facility] Body height 64 [in_i] 64 [in_i] [facility] ([facility]) 5'4" Diastolic blood pressure 68 mm[Hg] 68 mm[Hg] [facility] ([facility]) Systolic blood pressure 116 mm[Hg] 116 mm[Hg] [facility] ([facility])
[2020-11-08] MEDS ORDERED: propofoL 200 MG/20 ML VIAL As Ordered ONE ×2 (10:22→11:34)
[2020-11-08] MEDS ORDERED: LIDOCAINE 2% 100MG/5ML SDV (FOR ANES.) As Ordered ONE (10:22)
[2020-11-08] MEDS ORDERED: fentaNYL 100 MCG/2 ML INJECTION (J3010) As Ordered ONE (10:23)
--- NOTE | 2020-11-08 11:41 | ROOR ---
Patient Name: Laura Brower Procedure Date: 11/08/2020 10:57 AM Date of : 1965 Age: 54 Room: [facility] Gender: Female Note Status: Finalized Procedure: Upper GI endoscopy Indications: Epigastric abdominal pain, Dyspepsia Providers: Lamine Delgado MD Referring MD: Victorino HENRIQUEZ MD Requesting Provider: Medicines: Monitored Anesthesia Care Complications: No immediate complications. Procedure: Pre-Anesthesia Assessment: - Prior to the procedure, a History and Physical was performed, and patient medications and allergies were reviewed. The patient is competent. The risks and benefits of the procedure and the sedation options and risks were discussed with the patient. All questions were answered and informed consent was obtained. Patient identification and proposed procedure were verified by the physician, the nurse and the anesthesiologist in the procedure room. Mental Status Examination: alert and oriented. Airway Examination: normal oropharyngeal airway and neck mobility. Respiratory Examination: clear to auscultation. CV Examination: normal. Prophylactic Antibiotics: The patient does not require prophylactic antibiotics. Prior Anticoagulants: The patient has taken no previous anticoagulant or antiplatelet agents. ASA Grade Assessment: II - A patient with mild systemic disease. After reviewing the risks and benefits, the patient was deemed in satisfactory condition to undergo the procedure. The anesthesia plan was to use moderate sedation / analgesia (conscious sedation). Immediately prior to administration of medications, the patient was re-assessed for adequacy to receive sedatives. The heart rate, respiratory rate, oxygen saturations, blood pressure, adequacy of pulmonary ventilation, and response to care were monitored throughout the procedure. The physical status of the patient was re-assessed after the procedure. The Endoscope was introduced through the mouth, and advanced to the second part of duodenum. The upper GI endoscopy was accomplished without difficulty. The patient tolerated the procedure well. Findings: The examined esophagus was normal. The Z-line was regular and was found 39 cm from the incisors. Scattered moderate inflammation characterized by erythema and granularity was found in the gastric antrum. Biopsies were taken with a cold forceps for Helicobacter pylori testing. Verification of patient identification for the specimen was done by the physician and nurse using the patient's name, date and medical record number. Estimated blood loss was minimal. The duodenal bulb and second portion of the duodenum were normal. Biopsies for histology were taken with a cold forceps for evaluation of celiac disease. Impression: - Normal esophagus. - Z-line regular, 39 cm from the incisors. - Gastritis. Biopsied. - Normal duodenal bulb and second portion of the duodenum. Biopsied. Recommendation: - Patient has a contact number available for emergencies. The signs and symptoms of potential delayed complications were discussed with the patient. Return to normal activities tomorrow. Written discharge instructions were provided to the patient. - High fiber diet. - Continue present medications. - Await pathology results. Procedure Code(s): --- Professional --- 21708, Esophagogastroduodenoscopy, flexible, transoral; with biopsy, single or multiple Diagnosis Code(s): --- Professional --- K29.70, Gastritis, unspecified, without bleeding R10.13, Epigastric pain CPT copyright 2019 [employer]. All rights reserved. The codes documented in this report are preliminary and upon hospital coder review may be revised to meet current compliance requirements. Lamine Delgado MD Lamine Delgado MD 11/08/2020 11:40:45 AM Electronically signed by Lamine Delgado MD Number of Addenda: 0 Note Initiated On: 11/08/2020 10:57 AM Estimated Blood Loss: Estimated blood loss was minimal.
--- NOTE | 2020-11-08 11:57 | ROOR ---
Patient Name: Laura Brower Procedure Date: 11/08/2020 10:58 AM Date of : 1965 Age: 54 Room: [facility] Gender: Female Note Status: Finalized Procedure: Colonoscopy Indications: Change in bowel habits, Constipation Providers: Lamine Delgado MD Referring MD: Victorino HENRIQUEZ MD Requesting Provider: Medicines: Monitored Anesthesia Care Complications: No immediate complications. Procedure: Pre-Anesthesia Assessment: - Prior to the procedure, a History and Physical was performed, and patient medications and allergies were reviewed. The patient is competent. The risks and benefits of the procedure and the sedation options and risks were discussed with the patient. All questions were answered and informed consent was obtained. Patient identification and proposed procedure were verified by the physician, the nurse and the anesthesiologist in the procedure room. Mental Status Examination: alert and oriented. Airway Examination: normal oropharyngeal airway and neck mobility. Respiratory Examination: clear to auscultation. CV Examination: normal. Prophylactic Antibiotics: The patient does not require prophylactic antibiotics. Prior Anticoagulants: The patient has taken no previous anticoagulant or antiplatelet agents. ASA Grade Assessment: II - A patient with mild systemic disease. After reviewing the risks and benefits, the patient was deemed in satisfactory condition to undergo the procedure. The anesthesia plan was to use monitored anesthesia care (MAC). Immediately prior to administration of medications, the patient was re-assessed for adequacy to receive sedatives. The heart rate, respiratory rate, oxygen saturations, blood pressure, adequacy of pulmonary ventilation, and response to care were monitored throughout the procedure. The physical status of the patient was re-assessed after the procedure. The Colonoscope was introduced through the anus and advanced to the terminal ileum, with identification of the appendiceal orifice and IC valve. The colonoscopy was performed without difficulty. The patient tolerated the procedure well. The quality of the bowel preparation was good. The terminal ileum, ileocecal valve, appendiceal orifice, and rectum were photographed. Scope insertion time was 2 minutes. Scope withdrawal time was 8 minutes. The total duration of the procedure was 10 minutes. Findings: The perianal and digital rectal examinations were normal. The terminal ileum appeared normal. Normal mucosa was found in the entire colon. Non-bleeding external and internal hemorrhoids were found during retroflexion. The hemorrhoids were small. Impression: - The examined portion of the ileum was normal. - Normal mucosa in the entire examined colon. - Non-bleeding external and internal hemorrhoids. - No specimens collected. Recommendation: - Patient has a contact number available for emergencies. The signs and symptoms of potential delayed complications were discussed with the patient. Return to normal activities tomorrow. Written discharge instructions were provided to the patient. - High fiber diet. - Continue present medications. - Use fiber, for example Citrucel, Fibercon, Konsyl or Metamucil. - Follow the recommendations as per the other procedure note. - Repeat colonoscopy in 5-10 years for screening purposes. - Return to primary care physician. - Return to GI clinic in 5 years. Procedure Code(s): --- Professional --- 27740, Colonoscopy, flexible; diagnostic, including collection of specimen(s) by brushing or washing, when performed (separate procedure) Diagnosis Code(s): --- Professional --- K64.8, Other hemorrhoids R19.4, Change in bowel habit K59.00, Constipation, unspecified CPT copyright 2019 [employer]. All rights reserved. The codes documented in this report are preliminary and upon prosthodontist/educator review may be revised to meet current compliance requirements. Lamine Delgado MD Lamine Delgado MD 11/08/2020 11:56:32 AM Electronically signed by Lamine Delgado MD Number of Addenda: 0 Note Initiated On: 11/08/2020 10:58 AM Estimated Blood Loss: Estimated blood loss was minimal.
[2020-11-08 12:33] VITALS: BP 118/79
== END 2020-11-08 12:40 | disposition home or self-care (01) ==
LOC: M OPP 09:44
PROVIDERS: ATTEND Internal Medicine Gastroenterology
DX: R19.4 Change in bowel habit (principal); R10.13 Epigastric pain; K64.8 Other hemorrhoids; D13.1 Benign neoplasm of stomach; D13.39 Benign neoplasm of other parts of small intestine; K29.70 Gastritis, unspecified, without bleeding; Z85.44 Personal history of malignant neoplasm of other female genital organs; Z92.21 Personal history of antineoplastic chemotherapy; Z92.3 Personal history of irradiation; Z88.5 Allergy status to narcotic agent; Z88.6 Allergy status to analgesic agent; Z79.899 Other long term (current) drug therapy; Z80.0 Family history of malignant neoplasm of digestive organs; Z80.3 Family history of malignant neoplasm of breast; Z88.8 Allergy status to other drugs, medicaments and biological substances
CPT/HCPCS: 43239; 45378; 88305; J3010

== ENCOUNTER → 2021-01-23 | Outpatient (CLI) | payer MEDICARE, OTHER ==
[~2021-01-23] MED LIST changes: +GASTROGRAFIN SOLUTION 30ML (Q9963) As Ordered ONE; +ISOVUE-370 76% 100ML VIAL As Ordered ONE; -NS 1,000 ML IV ONE
--- NOTE | 2021-01-23 12:56 | REP ---
INDICATION: ENDOMETRIAL CA. COMPARISON: Multiple the latest 08/08/2020 TECHNIQUE: Standard helical technique after the intravenous administration of 100 cc Isovue 370. FINDINGS: The mediastinum and pulmonary nancy are stable. No mass or adenopathy has developed. There are no pleural or pericardial effusions. The imaged osseous structures are again seen to be within normal limits. Evaluation of the lung mckeon shows mild biapical pleuroparenchymal scarring status quo. No new abnormal nodules, masses, or opacities have developed. IMPRESSION: Stable unremarkable CT examination of the chest. There is no evidence of acute disease. <Electronically signed by Cleveland Sheffield > 01/23/21 0228
--- NOTE | 2021-01-23 13:00 | REP ---
INDICATION: ENDOMETRIAL CA. COMPARISON: Multiple the latest 08/08/2020 TECHNIQUE: Standard helical contrast-enhanced CT examination of the abdomen and pelvis after the intravenous administration of 100 cc Isovue 370 and oral bowel preparatory contrast. FINDINGS: The liver, spleen, pancreas, adrenal glands, and kidneys are unchanged. Tiny scattered focal areas of low density are again seen in the liver status quo. No enhancing hepatic lesions are present. The abdominal aorta and para-aortic regions are again seen to be within normal limits. The bowel loops and the mesenteries are again seen to be within normal limits. No mass or adenopathy has developed. There is no free fluid or free air. Bone window technique throughout the examination shows the osseous structures to be stable and intact. IMPRESSION: There is no evidence of acute disease or significant change compared to the prior exam. <Electronically signed by Cleveland Sheffield > 01/23/21 [id number]
== END ==
LOC: M RAD 11:12
PROVIDERS: ATTEND Internal Medicine Hematology & Oncology
DX: C54.1 Malignant neoplasm of endometrium (principal)
CPT/HCPCS: 71260; 74177; Q9963; Q9967

== ENCOUNTER 2021-03-23 17:32 | Emergency (ER) | payer MEDICARE, OTHER ==
[~2021-03-23] VITALS: Ht 165.1 cm; Wt 69.6 kg
[~2021-03-23 17:32] MED LIST changes: +COVI30VI IM; -GASTROGRAFIN SOLUTION 30ML (Q9963) As Ordered ONE; -ISOVUE-370 76% 100ML VIAL As Ordered ONE; +LIDVISCBTL; +NAPR220C14 PO
[2021-03-23] MEDS ORDERED: DIPH50CA29 PO (17:55)
[2021-03-23] MEDS ORDERED: LORA2CON5 PO (17:55)
[2021-03-23] MEDS ORDERED: HYOS0.374 PO (17:55)
[2021-03-23 18:45] LABS: BASO # 0.1 10^3/uL (0.0-0.2); EOS # 0.1 10^3/uL (0.0-0.5); EOS % 1.9 % (0.0-3.0); HEMATOCRIT 42.6 % (36.0-47.0); HEMOGLOBIN 14.3 g/dl (12.0-15.5); LYMPH # 1.5 10^3/uL (1.5-5.0); LYMPH % 21.2 % (24.0-44.0); MEAN CORPUSCULAR HEMOGLOBIN 29.6 pg (27.0-33.0); MEAN CORPUSCULAR HGB CONC 33.6 g/dl (32.0-36.5); MEAN CORPUSCULAR VOLUME 88.2 fl (80.0-96.0); MONO # 0.6 10^3/uL (0.0-0.8); MONO % 8.1 % (2.0-8.0); NEUTROPHILS # 4.9 10^3/uL (1.5-8.5); NEUTROPHILS % 67.4 % (36.0-66.0); PLATELET COUNT, AUTOMATED 350 10^3/uL (150-450); RED BLOOD COUNT 4.83 10^6/uL (4.00-5.40); WHITE BLOOD COUNT 7.3 10^3/uL (4.0-10.0)
[2021-03-23 19:11] LABS: ALBUMIN 4.4 GM/DL (3.2-5.2); BILIRUBIN,DIRECT 0.1 MG/DL (0.0-0.2); BILIRUBIN,TOTAL 0.6 MG/DL (0.2-1.0); CALCIUM LEVEL 9.9 MG/DL (8.5-10.1); CREATININE FOR GFR 1.02 MG/DL (0.55-1.30); GLOMERULAR FILTRATION RATE 59.5 (>51); POTASSIUM SERUM 4.1 MEQ/L (3.5-5.1)
[2021-03-23] MEDS ORDERED: METOCLOPRAMIDE INJ 10MG/2ML VIAL (J2765 PER 1) IV ONE (19:35)
[2021-03-23] MEDS ORDERED: MORPHINE 4 MG/ML 1ML VIAL/SYRINGE (J2270) IV PRN (19:35)
[2021-03-23] MEDS ORDERED: GI COCKTAIL 50ML BTL(HYOSCYAMINE/MAALOX/LIDOCAINE VISCOUS)(1:3:1) PO ONE (19:35)
[2021-03-23] MEDS ORDERED: ISOVUE-370 76% 100ML VIAL As Ordered ONE (19:55)
--- NOTE | 2021-03-23 21:17 | REPVR ---
PROCEDURE INFORMATION: Exam: CT Abdomen And Pelvis With Contrast Exam date and time: 03/23/2021 8:06 PM Age: 55 years old Clinical indication: Other: Epigastric/luq pain, HX of hiatal hernia TECHNIQUE: Imaging protocol: Computed tomography of the abdomen and pelvis with contrast. Radiation optimization: All CT scans at this facility use at least one of these dose optimization techniques: automated exposure control; mA and/or kV adjustment per patient size (includes targeted exams where dose is matched to clinical indication); or iterative reconstruction. Contrast material: ISOVUE 370; Contrast volume: 100 ml; Contrast route: INTRAVENOUS (IV); COMPARISON: CT ABD PELVIS WITH CONTRAST 01/23/2021 12:32 PM FINDINGS: Lungs: No suspicious mass or airspace process in the visualized lung bases. Liver: Simple appearing hepatic cysts are present. Benign focus of hepatic fatty infiltration, adjacent to the falciform ligament. Gallbladder and bile ducts: Gallbladder is surgically absent. Pancreas: Pancreas appears normal. No focal mass or peripancreatic inflammation. Spleen: Spleen appears homogeneous without focal mass. Adrenal glands: Adrenal glands are normal in appearance. Kidneys and ureters: Kidneys appear normal, with no stone, solid mass or hydronephrosis. Stomach and bowel: No evidence of small bowel obstruction. Terminal ileum has normal appearance. No evidence of acute diverticulitis. No concerning asymmetry or abnormality at the GE junction. Appendix: No evidence of acute appendicitis. Intraperitoneal space: No pneumoperitoneum. Vasculature: No aortic aneurysm. Main portal and splenic veins enhance normally. Lymph nodes: No enlarged lymph nodes. Urinary bladder: Urinary bladder appears normal. Reproductive: Uterus is surgically absent. Bones/joints: Bony structures show no acute fracture or destructive process. Soft tissues: No concerning focal abnormality of the extra-abdominal and pelvic soft tissues. IMPRESSION: No explanation for epigastric pain. No acute surgical or inflammatory process. Electronically signed by: Carlos Manuel Larson On 03/23/2021 21:17:32 PM
[2021-03-23] MEDS ORDERED: PROT1TAB2 PO (21:52)
[2021-03-23 22:01] VITALS: BP 117/54
== END 2021-03-23 22:13 | disposition home or self-care (01) ==
LOC: M ED 17:32
DX: K30 Functional dyspepsia (principal); C54.1 Malignant neoplasm of endometrium; Z88.6 Allergy status to analgesic agent
CPT/HCPCS: 74177; 80048; 80076; 83690; 85025; 96374; 96375; 99283; J2270; J2765; Q9967

== ENCOUNTER → 2021-09-01 | Outpatient (CLI) | payer MEDICARE, OTHER ==
[~2021-09-01] MED LIST changes: +BACTDSTA; +DIPH50CA29 PO; +DULO1CAP6; +HYDR-4429; +HYOS0.374 PO; +LORA2CON5 PO
--- NOTE | 2021-09-01 10:00 | REP ---
INDICATION: RUQ PAIN COMPARISON: Abdominal CT dated 03/23/2021 TECHNIQUE: Real time avery scale ultrasound examination using curved array transducer. FINDINGS: Liver includes 7 mm and 8 mm small benign cysts. No further hepatic abnormalities are identified by ultrasound.. Pancreas is incompletely evaluated due to interposed bowel gas. The gallbladder is surgically absent. Compensatory ductal dilatation is appreciated and the common bile duct measures 8.4 mm diameter. Right kidney is normal in reniform shape without hydronephrosis and measures 9.0 x 4.7 x 3.9 cm. No ascites in the visualized right upper quadrant. Visualized abdominal aorta appears normal. IMPRESSION: Essentially, normal limited right upper quadrant ultrasound <Electronically signed by Kwadwo Méndez > 09/01/21 0922
== END ==
LOC: M RAD 09:00
PROVIDERS: ATTEND Internal Medicine Gastroenterology
DX: R10.11 Right upper quadrant pain (principal); R68.81 Early satiety; K59.00 Constipation, unspecified; R12 Heartburn; K29.70 Gastritis, unspecified, without bleeding

== ENCOUNTER → 2021-10-27 | Outpatient (CLI) | payer MEDICARE, OTHER ==
[~2021-10-27] MED LIST changes: +B-12100021 PO; +MIRA3350 PO; -OMEP-221 PO; +OMEP40CA5 PO; +ONDA-83 PO; +ONDA-84 PO; -ONDA8TAB10 PO; -PROC10TA4 PO; +PROC10TA5 PO
== END ==
LOC: M PLARAD 12:17
PROVIDERS: ATTEND Internal Medicine Hematology & Oncology
DX: C54.1 Malignant neoplasm of endometrium (principal)
CPT/HCPCS: 78815; A9552

== ENCOUNTER → 2021-12-24 | Outpatient (CLI) | payer MEDICARE, OTHER | LOC: M RAD 08:33 | PROVIDERS: ATTEND Internal Medicine Gastroenterology | DX: K59.00 Constipation, unspecified (principal); K29.70 Gastritis, unspecified, without bleeding; R12 Heartburn; R10.11 Right upper quadrant pain; R10.32 Left lower quadrant pain | CPT/HCPCS: 78264; A9541 ==

== ENCOUNTER → 2022-05-28 | Outpatient (CLI) | payer MEDICARE, OTHER ==
[~2022-05-28] MED LIST changes: +SULF1TAB23 PO; +[UNRECOGNIZED DRUG - CODE] PO; +gas x PO
== END ==
LOC: M WHC 08:31
PROVIDERS: ATTEND Internal Medicine Hematology & Oncology
DX: C54.1 Malignant neoplasm of endometrium (principal); R93.2 Abnormal findings on diagnostic imaging of liver and biliary tract

== ENCOUNTER → 2022-10-19 | Outpatient (CLI) | payer MEDICARE, BC ==
[~2022-10-19] MED LIST changes: +E-Z-GAS II EFFERVESCENT PACKET (SODIUM BICARB./CITRIC ACID/SIMETHICONE) As Ordered ONE; +E-Z-HD 98% w/w 340GM SUSP BTL As Ordered ONE; +E-Z-PAQUE 96% w/w SUSP 176GM BTL As Ordered ONE
== END ==
LOC: M RAD 07:55
PROVIDERS: ATTEND Internal Medicine Gastroenterology
DX: R10.13 Epigastric pain (principal)

== ENCOUNTER 2023-08-12 06:02 | Observation (INO) | payer MEDICARE, BC ==
[~2023-08-12] VITALS: Ht 162.6 cm; Wt 68.0 kg
[~2023-08-12 06:02] MED LIST changes: +CEFD300C PO; +DULO1CAP4 PO; -E-Z-GAS II EFFERVESCENT PACKET (SODIUM BICARB./CITRIC ACID/SIMETHICONE) As Ordered ONE; -E-Z-HD 98% w/w 340GM SUSP BTL As Ordered ONE; -E-Z-PAQUE 96% w/w SUSP 176GM BTL As Ordered ONE; +FAMO40TA3; +FLON1SPR NARES; +LORA2TAB14 PO; +OXYB10TA23 PO; +SENN-186 PO; +SIME125T PO; +VIT D PO; +WOMETAB9 PO; +lidocaine viscous
[2023-08-12] MEDS ORDERED: LR 1,000 ML IV SCH ×2 (06:20→11:25)
[2023-08-12] MEDS ORDERED: GENTAMICIN SULF 80MG/2ML VIAL As Ordered ONE (06:43)
[2023-08-12] MEDS ORDERED: EPINEPHrine INJ 1 MG/ML 1ML AMP As Ordered ONE (06:43)
[2023-08-12] MEDS ORDERED: LIDOCAINE 1% MDV 20ML VIAL As Ordered ONE ×2 (06:44→06:55)
[2023-08-12] MEDS ORDERED: ceFAZolin SOD 2 GM in IV 1 EA IV ONE (07:00)
[2023-08-12] MEDS ORDERED: HEPARIN SOD (PORCINE) 5000UNITS/ML 1ML VIAL/SYRINGE SQ ONE (07:00)
[2023-08-12] MEDS ORDERED: ROCURONIUM BROMIDE 50MG/5ML VIAL As Ordered ONE ×2 (07:29→08:34)
[2023-08-12] MEDS ORDERED: propofoL 200 MG/20 ML VIAL As Ordered ONE (07:29)
[2023-08-12] MEDS ORDERED: LIDOCAINE 2% 100MG/5ML SDV (FOR ANES.) As Ordered ONE (07:29)
[2023-08-12] MEDS ORDERED: ONDANSETRON 4MG 2ML VIAL As Ordered ONE (07:29)
[2023-08-12] MEDS ORDERED: fentaNYL 250 MCG/5 ML INJECTION As Ordered ONE (07:30)
[2023-08-12] MEDS ORDERED: MIDAZOLAM INJ 2MG/2ML VIAL As Ordered ONE (07:30)
[2023-08-12] MEDS ORDERED: PHENYLephrine 500MCG 5ML (100MCG/ML) SYRINGE As Ordered ONE (08:19)
[2023-08-12] MEDS ORDERED: SUGAMMADEX SODIUM 500 MG/5 ML VIAL (BRIDION) As Ordered ONE (08:34)
[2023-08-12] MEDS ORDERED: ACETAMINOPHEN 1000MG 100ML IV BAG As Ordered ONE (08:34)
[2023-08-12] MEDS ORDERED: HYDROmorphone HCL 2MG/ML 1ML VIAL As Ordered ONE (08:35)
[2023-08-12] MEDS ORDERED: ONDANSETRON 4MG 2ML VIAL IV PRN ×2 (11:25→11:50)
[2023-08-12] MEDS ORDERED: HYDROMORPHONE HCL 0.5 MG/ 0.5 ML SYRINGE IV PRN (11:25)
[2023-08-12] MEDS ORDERED: fentaNYL 100 MCG/2 ML INJECTION IV PRN (11:25)
[2023-08-12] MEDS ORDERED: ACETAMINOPHEN TAB 650MG DOSE (2X325MG) PO PRN (11:50)
[2023-08-12] MEDS: LR 1,000 ML IV SCH (11:50)
[2023-08-12] MEDS ORDERED: ONDANSETRON 4MG TAB PO PRN (11:50)
[2023-08-12] MEDS: traMADol 50 MG TAB PO PRN ×2 (13:13→20:37)
[2023-08-12 16:30] VITALS: BP 99/58; TEMP 98.5; O2SAT 95
[2023-08-12 16:50] VITALS: BP 115/74; TEMP 98.3; O2SAT 96
[2023-08-12 17:45] VITALS: BP 111/72; TEMP 98.4; O2SAT 96
[2023-08-12 20:30] VITALS: BP 107/70; TEMP 97.9; O2SAT 95
[2023-08-12 22:00] VITALS: BP 99/61; TEMP 97.3; O2SAT 94
[2023-08-13 02:00] VITALS: BP 101/61; TEMP 97; O2SAT 93
[2023-08-13] MEDS: LR 1,000 ML IV SCH (02:00)
[2023-08-13 06:05] VITALS: BP 107/62; TEMP 97.9; O2SAT 95
[2023-08-13] MEDS: traMADol 50 MG TAB PO PRN (06:39)
[2023-08-13] MEDS ORDERED: TRAM50TA2 PO (09:57)
[2023-08-13 10:29] VITALS: BP 106/64; TEMP 98.1; O2SAT 97
== END 2023-08-13 11:10 | disposition home or self-care (01) ==
LOC: M SDC 06:02 → M RR INP 06:03 → M MS5PR 16:30
PROVIDERS: ADMIT Plastic Surgery Surgery of the Hand; ATTEND Plastic Surgery Surgery of the Hand
DX: N62 Hypertrophy of breast (principal); R07.89 Other chest pain; K21.9 Gastro-esophageal reflux disease without esophagitis; R51.9 Headache, unspecified; Z88.5 Allergy status to narcotic agent; Z88.8 Allergy status to other drugs, medicaments and biological substances; Z79.899 Other long term (current) drug therapy; Z92.3 Personal history of irradiation; Z92.21 Personal history of antineoplastic chemotherapy; Z85.43 Personal history of malignant neoplasm of ovary
CPT/HCPCS: 19318; 87635; 88305; C9290; G0378; J0131; J0665; J1100; J1580; J2250; J2371; J2405; J3010

== ENCOUNTER 2023-08-14 10:49 | Emergency (ER) | payer MEDICARE, BC ==
[~2023-08-14] VITALS: Ht 162.6 cm; Wt 68.3 kg
[~2023-08-14 10:49] MED LIST changes: +TRAM50TA2 PO
[2023-08-14 11:41] LABS: BASO # 0.1 10^3/uL (0.0-0.2); BASO % 0.5 % (0.0-1.0); EOS % 0.2 % (0.0-3.0); HEMATOCRIT 35.2 % (36.0-47.0); LYMPH # 1.6 10^3/uL (1.5-5.0); LYMPH % 17.7 % (24.0-44.0); MEAN CORPUSCULAR HEMOGLOBIN 30.9 pg (27.0-33.0); MEAN CORPUSCULAR HGB CONC 34.1 g/dl (32.0-36.5); MEAN CORPUSCULAR VOLUME 90.7 fl (80.0-96.0); MONO # 0.7 10^3/uL (0.0-0.8); MONO % 7.9 % (2.0-8.0); NEUTROPHILS # 6.7 10^3/uL (1.5-8.5); NEUTROPHILS % 73.3 % (36.0-66.0); PLATELET COUNT, AUTOMATED 251 10^3/uL (150-450); RED BLOOD COUNT 3.88 10^6/uL (4.00-5.40); WHITE BLOOD COUNT 9.1 10^3/uL (4.0-10.0)
[2023-08-14] MEDS ORDERED: NS 1,000 ML IV ONE (11:45)
[2023-08-14 11:53] LABS: INR 0.96; PROTHROMBIN TIME 12.5 SECONDS (12.5-14.5)
[2023-08-14 12:05] LABS: ETHYL ALCOHOL (ETHANOL) 0.005 % (0.000-0.010)
[2023-08-14 12:07] LABS: BLOOD UREA NITROGEN 11 MG/DL (9-23); CARBON DIOXIDE LEVEL 29 MMOL/L (20-31); CHLORIDE LEVEL 103 MMOL/L (98-107); CK-MB VALUE MASS < 1.0 NG/ML (<3.6); CREATININE FOR GFR 0.86 MG/DL (0.55-1.30); GLOMERULAR FILTRATION RATE > 60.0 (>51); GLUCOSE, FASTING 94 MG/DL (60-100); MAGNESIUM LEVEL 1.7 MG/DL (1.8-2.4); SODIUM LEVEL 140 MMOL/L (136-145)
[2023-08-14 12:11] LABS: THYROID STIMULATING HORMONE 2.576 uIU/ML (0.55-4.78)
[2023-08-14 12:12] LABS: FREE T4 1.23 NG/DL (0.89-1.76)
[2023-08-14 12:15] LABS: RSV AMPLIFICATION NEGATIVE (NEGATIVE)
[2023-08-14 12:21] LABS: CPK CREATINE PHOSPHOKINASE 48 U/L (34-145); MB/CK RELATIVE INDEX 2.08 (< OR =4)
[2023-08-14 12:25] LABS: PARTIAL THROMBOPLASTIN TIME < 20.0 SECONDS (24.8-34.2)
[2023-08-14 14:10] LABS: CPK CREATINE PHOSPHOKINASE 45 U/L (34-145); MB/CK RELATIVE INDEX 2.22 (< OR =4)
[2023-08-14 15:04] VITALS: BP 115/70; TEMP 99.1; O2SAT 98
== END 2023-08-14 15:14 | disposition home or self-care (01) ==
LOC: EDBD 10:49 → M ED 10:49
DX: R55 Syncope and collapse (principal); Z88.5 Allergy status to narcotic agent; Z88.6 Allergy status to analgesic agent; Z41.1 Encounter for cosmetic surgery; Z87.19 Personal history of other diseases of the digestive system; Z79.83 Long term (current) use of bisphosphonates; Z79.891 Long term (current) use of opiate analgesic; Z79.899 Other long term (current) drug therapy

== ENCOUNTER → 2023-12-01 | Outpatient (CLI) | payer MEDICARE, BC ==
[~2023-12-01] MED LIST changes: +GASTROGRAFIN SOLUTION 30ML As Ordered ONE; +ISOVUE-370 76% 100ML VIAL As Ordered ONE
== END ==
LOC: M RAD 08:42
PROVIDERS: ATTEND Nurse Practitioner
DX: C54.1 Malignant neoplasm of endometrium (principal); Z90.79 Acquired absence of other genital organ(s)
CPT/HCPCS: 71260; 74177; Q9963; Q9967

== ENCOUNTER → 2024-09-14 | Outpatient (CLI) | payer MEDICARE, BC ==
[~2024-09-14] MED LIST changes: -GASTROGRAFIN SOLUTION 30ML As Ordered ONE; +HYOS0.3723 PO; -HYOS0.374 PO
== END ==
LOC: M RAD 14:46
PROVIDERS: ATTEND Internal Medicine Medical Oncology
DX: C54.1 Malignant neoplasm of endometrium (principal); K76.0 Fatty (change of) liver, not elsewhere classified; Z90.49 Acquired absence of other specified parts of digestive tract; R93.2 Abnormal findings on diagnostic imaging of liver and biliary tract; R93.3 Abnormal findings on diagnostic imaging of other parts of digestive tract
CPT/HCPCS: 71260; 74177; Q9967

== ENCOUNTER 2025-05-28 08:39 | Day surgery (SDC) | payer MEDICARE ==
[~2025-05-28] VITALS: Ht 165.1 cm; Wt 66.0 kg
[~2025-05-28 08:39] MED LIST changes: +ACET-897 PO; +B-12100010 PO; -ISOVUE-370 76% 100ML VIAL As Ordered ONE; +MELO15TA28; +[UNRECOGNIZED DRUG - CODE] PO; -[UNRECOGNIZED DRUG - CODE] PO
[2025-05-28] MEDS ORDERED: LIDOCAINE 2% 100 MG/5 ML SDV (FOR ANES.) As Ordered ONE (10:26)
[2025-05-28 11:00] VITALS: BP 130/93; TEMP 98.2; O2SAT 96
== END 2025-05-28 11:17 | disposition home or self-care (01) ==
LOC: M OPP 08:39
PROVIDERS: ATTEND Surgery
DX: Z12.11 Encounter for screening for malignant neoplasm of colon (principal); K57.30 Diverticulosis of large intestine without perforation or abscess without bleeding; K29.70 Gastritis, unspecified, without bleeding; R10.13 Epigastric pain; Z88.5 Allergy status to narcotic agent; Z88.8 Allergy status to other drugs, medicaments and biological substances; Z79.51 Long term (current) use of inhaled steroids; Z79.899 Other long term (current) drug therapy
CPT/HCPCS: 43239; 88305; G0121; J3010